=== PATIENT | female | born 1985 | race Caucasian/White ===

== ENCOUNTER 2016-10-08 19:21 | Emergency (ER) | payer OTHER ==
[~2016-10-08 19:21] MED LIST: CYCL7.5T2 PO; IBUP800T OR; NAPR500T2 PO; PERC5TAB8 OR; ULTR50TA PO
[2016-10-08] MEDS ORDERED: DERMABOND TOPICAL SKIN ADHESIVE TOP ONE (19:45)
[2016-10-08 20:57] VITALS: BP 145/94
[2016-10-08 21:04] LABS: MEAN CORPUSCULAR HEMOGLOBIN 33.4 pg (27.0-33.0); MEAN CORPUSCULAR VOLUME 101.1 fl (80.0-96.0); RED CELL DISTRIBUTION WIDTH 15.6 % (11.5-14.5); WHITE BLOOD COUNT 12.6 K/mm3 (4.0-10.0)
[2016-10-08 21:24] LABS: METHADONE URINE NEGATIVE (NEGATIVE)
[2016-10-08 21:36] LABS: ALBUMIN 4.2 GM/DL (3.2-5.2); ALKALINE PHOSPHATASE 122 U/L (45-117); ALT/SGPT 39 U/L (12-78); ANION GAP 10 MEQ/L (8-16); AST/SGOT 40 U/L (15-37); BILIRUBIN,DIRECT < 0.1 MG/DL (0.0-0.2); BILIRUBIN,TOTAL 0.2 MG/DL (0.2-1.0); BLOOD UREA NITROGEN 7 MG/DL (7-18); CALCIUM LEVEL 8.4 MG/DL (8.5-10.1); CARBON DIOXIDE LEVEL 25 MEQ/L (21-32); CHLORIDE LEVEL 109 MEQ/L (98-107); GLOMERULAR FILTRATION RATE > 60.0 (>60); GLUCOSE, FASTING 97 MG/DL (70-105); SODIUM LEVEL 144 MEQ/L (136-145); TOTAL PROTEIN 7.7 GM/DL (6.4-8.2)
== END 2016-10-08 21:26 | disposition home or self-care (01) ==
LOC: EDBD 19:21 → M ED 19:41
DX: S01.90XA Unspecified open wound of unspecified part of head, initial encounter (principal); X58.XXXA Exposure to other specified factors, initial encounter; Y92.9 Unspecified place or not applicable; Y93.9 Activity, unspecified; Y99.9 Unspecified external cause status; F10.129 Alcohol abuse with intoxication, unspecified; F17.200 Nicotine dependence, unspecified, uncomplicated; Z88.2 Allergy status to sulfonamides
CPT/HCPCS: 12011; 80048; 80076; 80306; 84443; 85027; 99283; G0480

== ENCOUNTER 2017-02-04 01:45 | Emergency (ER) | payer OTHER ==
[~2017-02-04] VITALS: Ht 154.9 cm; Wt 58.1 kg
[2017-02-04 01:53] VITALS: BP 163/111
== END 2017-02-04 02:30 | disposition left against medical advice (07) ==
LOC: M ED 01:45 → EDBD 01:45 → M ED 02:30
DX: T76.91XA Unspecified adult maltreatment, suspected, initial encounter (principal); Y92.9 Unspecified place or not applicable; Y93.9 Activity, unspecified; Z53.21 Procedure and treatment not carried out due to patient leaving prior to being seen by health care provider

== ENCOUNTER 2017-02-25 21:32 | Emergency (ER) | payer OTHER ==
[~2017-02-25] VITALS: Ht 157.5 cm; Wt 110.0 kg
[2017-02-25] MEDS ORDERED: SUCCINYLCHOLINE 100 MG/5 ML SYRINGE (J0330) ONE (21:33)
[2017-02-25] MEDS ORDERED: ETOMIDATE INJ 20MG/10ML VIAL ONE (21:33)
[2017-02-25] MEDS ORDERED: CHARCOAL ACTIVATED LIQUID 25 GM/120 ML BTL PO ONE (22:00)
[2017-02-25 22:03] LABS: BASO % 0.3 % (0.0-1.0); EOS % 0.2 % (0.0-3.0); LARGE UNSTAINED CELL # 0.2 K/mm3 (0.0-0.4); LARGE UNSTAINED CELL % 2.6 % (0.0-4.0); LYMPH # 2.3 K/mm3 (1.5-4.5); MEAN CORPUSCULAR HEMOGLOBIN 33.3 pg (27.0-33.0); MEAN CORPUSCULAR HGB CONC 32.5 g/dl (32.0-36.5); MEAN CORPUSCULAR VOLUME 102.4 fl (80.0-96.0); MONO # 0.2 K/mm3 (0.0-0.8); MONO % 2.5 % (0.0-5.0); NEUTROPHILS # 4.6 K/mm3 (1.8-7.7); NEUTROPHILS % 63.3 % (36.0-66.0); PLATELET COUNT, AUTOMATED 349 k/mm3 (150-450); RED CELL DISTRIBUTION WIDTH 16.9 % (11.5-14.5); WHITE BLOOD COUNT 7.3 K/mm3 (4.0-10.0)
[2017-02-25] MEDS ORDERED: SUCCINYLCHOLINE INJ 200 MG/10 ML VIAL (J0330) IV ONE (22:15)
[2017-02-25] MEDS ORDERED: MIDAZOLAM INJ 2 MG/2 ML VIAL (J2250) IV ONE ×2 (22:15→22:30)
[2017-02-25 22:17] LABS: ABG BASE EXCESS -7.7 (-2.0-2.0); ABG HCO3 18.9 MEQ/L (22.0-26.0); ABG PARTIAL PRESSURE CO2 42.7 mmHg (35.0-45.0); ABG PARTIAL PRESSURE O2 114.5 mmHg (75.0-100.0); ABG STANDARD HCO3 18.2 MEQ/L (22.0-26.0); ABG TOTAL CO2 20.2 MEQ/L (22.0-29.0); ABG pH (ARTERIAL) 7.264 UNITS (7.350-7.450)
[2017-02-25 22:27] LABS: OSMOLALITY SERUM 374 MOSM/KG (275-295)
[2017-02-25 22:29] LABS: CONTROL LINE HCG INT CTR LINE PRESENT
[2017-02-25 22:31] LABS: ALBUMIN/GLOBULIN RATIO 1.18 (1.00-1.93); ALKALINE PHOSPHATASE 109 U/L (45-117); ALT/SGPT 29 U/L (12-78); ANION GAP 11 MEQ/L (8-16); AST/SGOT 24 U/L (15-37); BILIRUBIN,DIRECT < 0.1 MG/DL (0.0-0.2); BILIRUBIN,TOTAL 0.2 MG/DL (0.2-1.0); BLOOD UREA NITROGEN 10 MG/DL (7-18); CALCIUM LEVEL 8.4 MG/DL (8.5-10.1); CARBON DIOXIDE LEVEL 26 MEQ/L (21-32); CHLORIDE LEVEL 108 MEQ/L (98-107); CREATININE FOR GFR 0.97 MG/DL (0.55-1.02); GLOMERULAR FILTRATION RATE > 60.0 (>60); GLUCOSE, FASTING 119 MG/DL (70-105); METHADONE URINE NEGATIVE (NEGATIVE); POTASSIUM SERUM 3.6 MEQ/L (3.5-5.1); SODIUM LEVEL 145 MEQ/L (136-145); T UPTAKE 31 % (30-39); THYROXINE (T4) 7.1 UG/DL (4.5-12.0); TOTAL PROTEIN 7.4 GM/DL (6.4-8.2)
--- NOTE | 2017-02-25 22:40 | REPUSA ---
CT of the head Clinical history: altered level of consciousness. Comparison: 02/18/2016. Technique: Multiple axial CT images were obtained through the head without administration of contrast . Findings: The ventricles and sulci are symmetric bilaterally. There is no evidence of acute hemorrhag e or infarct. There is no midline shift, mass effect, or extra-axial fluid collection. The osseous st ructures are unremarkable. The visualized paranasal sinuses and mastoid air cells are clear. Impression: Negative study.
[2017-02-25 23:23] LABS: ABG BASE EXCESS -4.7 (-2.0-2.0); ABG HCO3 21.3 MEQ/L (22.0-26.0); ABG PARTIAL PRESSURE CO2 42.6 mmHg (35.0-45.0); ABG STANDARD HCO3 20.6 MEQ/L (22.0-26.0); ABG TOTAL CO2 22.6 MEQ/L (22.0-29.0); ABG pH (ARTERIAL) 7.316 UNITS (7.350-7.450)
[2017-02-26] MEDS ORDERED: CARI350T PO (02:49)
[2017-02-26] MEDS ORDERED: QUET1TAB8 PO (02:49)
[2017-02-26] MEDS ORDERED: SENN1TAB10 PO (02:49)
[2017-02-26] MEDS ORDERED: LEVOTAB10 PO (02:49)
[2017-02-26] MEDS ORDERED: ALPR2TAB3 PO (02:49)
[2017-02-26] MEDS ORDERED: GABA600T PO (02:49)
[2017-02-26] MEDS ORDERED: BUSP15TA47 PO (02:49)
[2017-02-26] MEDS ORDERED: HYDR-3719 PO (02:49)
[2017-02-26] MEDS ORDERED: ATEN100T PO (02:49)
[2017-02-26] MEDS ORDERED: VENL150C43 PO (02:49)
[2017-02-26] MEDS ORDERED: PATIENT COMMENT (02:51)
[2017-02-26 05:30] VITALS: BP 146/89
--- NOTE | 2017-02-26 06:00 | ECGEPIP ---
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 RBBB SIMILAR TO 08/29/15 Electronically Signed On 02-26-2017 5:59:51 EDT by Mike Mcfarland
--- NOTE | 2017-02-26 07:39 | REP ---
Portable chest, 90, 57 p.m., single AP view, the patient semi upright, for ET tube placement: Comparison is 11/12/2012. There is an endotracheal tube with the tip terminating satisfactorily in the distal trachea just above the janice, not selectively in the right or left main stem bronchi. The lung howard are clear. Cardiac size is normal. The tina, mediastinum, and bony thorax are unremarkable. There is gaseous distension of the stomach beneath the left hemidiaphragm. Signed by Trav Veliz MD 02/26/2017 07:30 A
== END 2017-02-26 06:22 | disposition left against medical advice (07) ==
LOC: M ED 21:32 → EDBD 21:32 → M ED 02-26 06:22
DX: R40.20 Unspecified coma (principal); F10.120 Alcohol abuse with intoxication, uncomplicated; T42.4X4A Poisoning by benzodiazepines, undetermined, initial encounter; Y92.89 Other specified places as the place of occurrence of the external cause
CPT/HCPCS: 31500; 36415; 36600; 51702; 70450; 71010; 80048; 80076; 80307; 80320; 80329; 82140; 82375; 82550; 82553; 82803; 83930; 84436; 84443; 84479; 84703; 85025; 93000; 93041; 96374; 96375; 99291; J0330; J2250

== ENCOUNTER 2018-02-18 21:09 | Emergency (ER) | payer OTHER ==
[2018-02-18] MEDS: CARISOPRODOL 350 MG TAB PO (22:27)
[2018-02-18] MEDS: NORCO 5/325MG TABLET (BULK FOR ED) PO (22:28)
== END 2018-02-18 22:32 | disposition home or self-care (01) ==
LOC: M ED 21:09
DX: Z76.0 Encounter for issue of repeat prescription (principal); M54.9 Dorsalgia, unspecified; G89.29 Other chronic pain; I10 Essential (primary) hypertension; F41.9 Anxiety disorder, unspecified; R56.9 Unspecified convulsions; F42.9 Obsessive-compulsive disorder, unspecified; F17.210 Nicotine dependence, cigarettes, uncomplicated; Z88.2 Allergy status to sulfonamides; Z79.899 Other long term (current) drug therapy
CPT/HCPCS: 99283

== ENCOUNTER 2018-06-07 09:25 | Emergency (ER) | payer OTHER ==
[~2018-06-07] VITALS: Ht 154.9 cm; Wt 50.0 kg
[~2018-06-07 09:25] MED LIST changes: +ALPR2TAB3 PO; +ATEN100T PO; +BUSP15TA47 PO; +CARI1TAB7 PO; +GABA600T4 PO; +HYDR-3719 PO; +LEVOTAB10 PO; +NORCOTAB PO; +PATIENT COMMENT; +QUET1TAB8 PO; +SENN1TAB10 PO; +SOMA350T PO; +VENL150C43 PO
[2018-06-07] MEDS ORDERED: ONDANSETRON 4MG/2ML VIAL (J2405) IV ONE (09:45)
[2018-06-07] MEDS ORDERED: NS 1,000 ML IV ONE (09:45)
[2018-06-07] MEDS ORDERED: KETOROLAC 30 MG/ML VIAL (J1885) IV ONE (09:45)
[2018-06-07 10:05] LABS: BASO % 0.3 % (0.0-1.0); EOS % 0.4 % (0.0-3.0); HEMATOCRIT 42.6 % (36.0-47.0); HEMOGLOBIN 14.2 g/dl (12.0-15.5); LYMPH # 2.4 10^3/uL (1.5-4.5); LYMPH % 22.2 % (24.0-44.0); MEAN CORPUSCULAR HEMOGLOBIN 29.8 pg (27.0-33.0); MEAN CORPUSCULAR HGB CONC 33.3 g/dl (32.0-36.5); MEAN CORPUSCULAR VOLUME 89.5 fl (80.0-96.0); MONO # 0.2 10^3/uL (0.0-0.8); MONO % 1.6 % (0.0-5.0); NEUTROPHILS # 8.1 10^3/uL (1.8-7.7); NEUTROPHILS % 75.3 % (36.0-66.0); PLATELET COUNT, AUTOMATED 299 10^3/uL (150-450); RED BLOOD COUNT 4.76 10^6/uL (4.00-5.40); WHITE BLOOD COUNT 10.7 10^3/uL (4.0-10.0)
[2018-06-07 10:33] LABS: ALBUMIN 3.8 GM/DL (3.2-5.2); ALT/SGPT 16 U/L (12-78); AMYLASE 81 U/L (25-115); BILIRUBIN,TOTAL 0.4 MG/DL (0.2-1.0); BLOOD UREA NITROGEN 6 MG/DL (7-18); CALCIUM LEVEL 9.1 MG/DL (8.5-10.1); CARBON DIOXIDE LEVEL 28 MEQ/L (21-32); CHLORIDE LEVEL 104 MEQ/L (98-107); CREATININE FOR GFR 0.72 MG/DL (0.55-1.30); GLOMERULAR FILTRATION RATE > 60.0 (>60); GLUCOSE, FASTING 108 MG/DL (70-100); LIPASE 93 U/L (73-393); POTASSIUM SERUM 3.8 MEQ/L (3.5-5.1); SODIUM LEVEL 140 MEQ/L (136-145); TOTAL PROTEIN 7.9 GM/DL (6.4-8.2)
--- NOTE | 2018-06-07 10:45 | REP ---
Clinical: Right upper quadrant pain. Technique: Real time parker scale ultrasound examination using curved array transducer. Findings: The liver and visualized pancreas are normal in contour, size, and echogenicity without focal hepatic or pancreatic lesions identified. The gallbladder is normal and without gallstones, wall thickening, or pericholecystic fluid. No biliary ductal dilatation is appreciated and the common bile duct measures 3.8 mm diameter. The right kidney is normal in reniform shape without hydronephrosis and measures 11.3 x 3.6 x 4.8 cm. No ascites. Impression: Normal right upper quadrant ultrasound. Electronically Signed by Alan Angela MD 06/07/2018 10:37 A
[2018-06-07] MEDS ORDERED: METOCLOPRAMIDE INJ 10MG/2ML VIAL (J2765) IV ONE (11:00)
[2018-06-07] MEDS ORDERED: REGL10TA6 PO (11:22)
[2018-06-07] MEDS ORDERED: DICY20TA PO (11:22)
[2018-06-07] MEDS ORDERED: PROT1TAB2 PO (11:22)
[2018-06-07] MEDS ORDERED: KETO10TAB PO (11:22)
[2018-06-07] MEDS ORDERED: ONDANSETRON 4 MG TAB (S0181) PO ONE (11:30)
[2018-06-07] MEDS ORDERED: DICYCLOMINE 10 MG CAP PO ONE (11:30)
[2018-06-07] MEDS ORDERED: PANTOPRAZOLE 40MG TAB (PROTONIX) PO ONE (11:30)
[2018-06-07 11:46] VITALS: BP 167/87
== END 2018-06-07 11:50 | disposition home or self-care (01) ==
LOC: M ED 09:25
DX: R10.10 Upper abdominal pain, unspecified (principal); R11.2 Nausea with vomiting, unspecified; R19.7 Diarrhea, unspecified; I10 Essential (primary) hypertension; Z72.0 Tobacco use; R56.9 Unspecified convulsions; M54.9 Dorsalgia, unspecified; F41.9 Anxiety disorder, unspecified; F32.9 Major depressive disorder, single episode, unspecified; F42.9 Obsessive-compulsive disorder, unspecified; Z79.899 Other long term (current) drug therapy; Z88.2 Allergy status to sulfonamides
CPT/HCPCS: 36415; 76705; 80053; 81001; 82150; 83690; 85025; 96374; 96375; 99284; J1885; J2405; J2765

== ENCOUNTER 2018-06-19 11:52 | Emergency (ER) | payer OTHER ==
[~2018-06-19] VITALS: Ht 154.9 cm; Wt 54.1 kg
[~2018-06-19 11:52] MED LIST changes: +DICY20TA PO; +KETO10TAB PO; +PROT1TAB2 PO; +REGL10TA6 PO
[2018-06-19] MEDS ORDERED: NS 1,000 ML IV ONE (12:30)
[2018-06-19 12:41] LABS: BASO % 0.3 % (0.0-1.0); EOS # 0.1 10^3/uL (0.0-0.50); EOS % 0.5 % (0.0-3.0); HEMATOCRIT 48.6 % (36.0-47.0); HEMOGLOBIN 16.3 g/dl (12.0-15.5); LYMPH # 3.8 10^3/uL (1.5-4.5); LYMPH % 29.4 % (24.0-44.0); MEAN CORPUSCULAR HEMOGLOBIN 30.1 pg (27.0-33.0); MEAN CORPUSCULAR HGB CONC 33.5 g/dl (32.0-36.5); MEAN CORPUSCULAR VOLUME 89.7 fl (80.0-96.0); MONO # 0.4 10^3/uL (0.0-0.8); MONO % 3.3 % (0.0-5.0); NEUTROPHILS # 8.5 10^3/uL (1.8-7.7); NEUTROPHILS % 66.2 % (36.0-66.0); RED BLOOD COUNT 5.42 10^6/uL (4.00-5.40); WHITE BLOOD COUNT 12.9 10^3/uL (4.0-10.0)
[2018-06-19 12:51] LABS: PLATELET COUNT, AUTOMATED 330 10^3/uL (150-450)
[2018-06-19] MEDS ORDERED: MORPHINE 4 MG/ML 1ML VIAL/SYRINGE (J2270) IV ONE (13:15)
[2018-06-19] MEDS ORDERED: ONDANSETRON 4MG/2ML VIAL (J2405) IV ONE (13:15)
[2018-06-19 13:41] LABS: ALBUMIN 4.7 GM/DL (3.2-5.2); ALT/SGPT 21 U/L (12-78); AMYLASE 140 U/L (25-115); BILIRUBIN,DIRECT 0.2 MG/DL (0.0-0.2); BILIRUBIN,TOTAL 0.6 MG/DL (0.2-1.0); BLOOD UREA NITROGEN 16 MG/DL (7-18); CALCIUM LEVEL 10.1 MG/DL (8.5-10.1); CARBON DIOXIDE LEVEL 27 MEQ/L (21-32); CHLORIDE LEVEL 99 MEQ/L (98-107); CREATININE FOR GFR 0.93 MG/DL (0.55-1.30); GLOMERULAR FILTRATION RATE > 60.0 (>60); GLUCOSE, FASTING 88 MG/DL (70-100); LIPASE 494 U/L (73-393); POTASSIUM SERUM 3.6 MEQ/L (3.5-5.1); SODIUM LEVEL 136 MEQ/L (136-145); TOTAL PROTEIN 8.6 GM/DL (6.4-8.2)
[2018-06-19] MEDS ORDERED: ISOVUE-370 76% 100ML VIAL (Q9967) As Ordered ONE (13:45)
--- NOTE | 2018-06-19 14:36 | REP ---
CT ABDOMEN AND PELVIS WITH IV BUT WITHOUT ORAL CONTRAST: HISTORY: Epigastric pain slightly elevated amylase and lipase. CT CONTRAST DOSE: 100 mL of intravenous Isovue 370. 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 The lung bases are clear on axial CT images. The liver and the spleen are normal in size and homogeneous in texture. No adrenal lesion is seen. No focal hepatic lesion is observed. The pancreas is unremarkable. No abnormality is noted in the gallbladder. No retroperitoneal mass or adenopathy is seen. The kidneys enhance symmetrically and are morphologically intact. There is fairly impressive aortobi-iliac calcific plaquing in this young patient. Pelvic CT images demonstrate tubal ligation bands. Uterus is tipped somewhat to the left but unremarkable. Urinary bladder is normal. No adnexal mass or cyst is seen on either side. Small and large intestinal bowel loops are unremarkable. No abdominal wall defect. Bone window settings show no bony destructive lesion. Normal appendix is seen in the right mid pelvis. IMPRESSION: Fairly extensive aortobi-iliac vascular calcification in this young patient. Status post bilateral tubal ligation. Otherwise negative. Electronically Signed by Julius Abdi MD 06/19/2018 04:26 P
[2018-06-19] MEDS ORDERED: ONDA4TAB6 PO (14:38)
[2018-06-19] MEDS ORDERED: ACET30TAB PO (14:39)
[2018-06-19] MEDS ORDERED: CIPR-249 PO (14:41)
[2018-06-19 14:46] VITALS: BP 155/98
--- NOTE | 2018-06-23 12:52 | ED PDOC ---
Post-Departure Follow-Up dr thakur faxed formal report of ct abd/p fo rfu Joao Castanon MD Jun 23, 2018 12:52
== END 2018-06-19 14:51 | disposition home or self-care (01) ==
LOC: M ED 11:52
DX: N30.00 Acute cystitis without hematuria (principal); K85.90 Acute pancreatitis without necrosis or infection, unspecified; R93.1 Abnormal findings on diagnostic imaging of heart and coronary circulation; I99.9 Unspecified disorder of circulatory system; R56.9 Unspecified convulsions; G89.29 Other chronic pain; M54.9 Dorsalgia, unspecified; F41.9 Anxiety disorder, unspecified; F32.9 Major depressive disorder, single episode, unspecified; N18.9 Chronic kidney disease, unspecified; Z72.0 Tobacco use; Z79.899 Other long term (current) drug therapy; Z88.2 Allergy status to sulfonamides
CPT/HCPCS: 36415; 74177; 80048; 80076; 81001; 82150; 83690; 85025; 87186; 96361; 96374; 96375; 99284; J2270; J2405; Q9967

== ENCOUNTER 2018-09-06 09:08 | Emergency (ER) | payer OTHER ==
[~2018-09-06] VITALS: Ht 154.9 cm; Wt 52.7 kg
[~2018-09-06 09:08] MED LIST changes: +ACET-716 PO; +CIPR-249 PO; +HYDR-3715 PO; -NORCOTAB PO; +ONDA4TAB6 PO
[2018-09-06] MEDS ORDERED: GABA600T4 PO (09:13)
[2018-09-06] MEDS ORDERED: MIRT45TA4 PO (09:13)
[2018-09-06] MEDS ORDERED: ALPR1TAB3 PO (09:13)
[2018-09-06] MEDS ORDERED: ALPRAZolam 0.5 MG TAB PO ONE ×3 (09:30→12:30)
[2018-09-06] MEDS ORDERED: NS 1,000 ML IV ONE (09:30)
[2018-09-06 09:59] LABS: AMPHETAMINES LEVEL URINE NEGATIVE (NEGATIVE); BARBITURATES URINE NEGATIVE (NEGATIVE); BENZODIAZEPINES URINE POSITIVE (NEGATIVE); CANNABINOIDS URINE POSITIVE (NEGATIVE); COCAINE METABOLITE URINE POSITIVE (NEGATIVE); METHADONE URINE NEGATIVE (NEGATIVE); OPIATES URINE NEGATIVE (NEGATIVE); PHENCYCLIDINE URINE NEGATIVE (NEGATIVE)
[2018-09-06 10:01] LABS: BASO % 0.3 % (0.0-1.0); EOS % 0.1 % (0.0-3.0); HEMATOCRIT 46.2 % (36.0-47.0); HEMOGLOBIN 15.2 g/dl (12.0-15.5); LYMPH # 3.2 10^3/uL (1.5-4.5); LYMPH % 22.3 % (24.0-44.0); MEAN CORPUSCULAR HEMOGLOBIN 30.8 pg (27.0-33.0); MEAN CORPUSCULAR HGB CONC 32.9 g/dl (32.0-36.5); MEAN CORPUSCULAR VOLUME 93.5 fl (80.0-96.0); MONO # 0.3 10^3/uL (0.0-0.8); MONO % 1.8 % (0.0-5.0); NEUTROPHILS # 10.6 10^3/uL (1.8-7.7); NEUTROPHILS % 75.1 % (36.0-66.0); PLATELET COUNT, AUTOMATED 349 10^3/uL (150-450); RED BLOOD COUNT 4.94 10^6/uL (4.00-5.40); WHITE BLOOD COUNT 14.1 10^3/uL (4.0-10.0)
[2018-09-06] MEDS ORDERED: PROMETHAZINE INJ 25 MG/ML VIAL (J2550) IV ONE (10:30)
[2018-09-06 12:05] LABS: ALBUMIN 4.2 GM/DL (3.2-5.2); ALT/SGPT 13 U/L (12-78); BILIRUBIN,DIRECT < 0.1 MG/DL (0.0-0.2); BILIRUBIN,TOTAL 0.4 MG/DL (0.2-1.0); BLOOD UREA NITROGEN 10 MG/DL (7-18); CALCIUM LEVEL 9.7 MG/DL (8.5-10.1); CARBON DIOXIDE LEVEL 28 MEQ/L (21-32); CHLORIDE LEVEL 107 MEQ/L (98-107); CREATININE FOR GFR 0.85 MG/DL (0.55-1.30); GLOMERULAR FILTRATION RATE > 60.0 (>60); GLUCOSE, FASTING 103 MG/DL (70-100); POTASSIUM SERUM 4.2 MEQ/L (3.5-5.1); SODIUM LEVEL 142 MEQ/L (136-145); TOTAL PROTEIN 7.8 GM/DL (6.4-8.2)
[2018-09-06] MEDS ORDERED: CLONI1TA PO (12:53)
[2018-09-06] MEDS ORDERED: cloNIDine 0.1 MG TAB PO ONE (13:00)
[2018-09-06] MEDS ORDERED: KETOROLAC 30 MG/ML VIAL (J1885) IV ONE (13:00)
[2018-09-06] MEDS ORDERED: hydrALAZINE INJ 20 MG/ML VIAL IV STA (13:42)
[2018-09-06 16:07] VITALS: BP 193/98
== END 2018-09-06 16:15 | disposition home or self-care (01) ==
LOC: M ED 09:08
DX: F19.230 Other psychoactive substance dependence with withdrawal, uncomplicated (principal); F19.10 Other psychoactive substance abuse, uncomplicated; I10 Essential (primary) hypertension; R56.9 Unspecified convulsions; G89.29 Other chronic pain; M54.9 Dorsalgia, unspecified; F41.9 Anxiety disorder, unspecified; F32.9 Major depressive disorder, single episode, unspecified; F42.9 Obsessive-compulsive disorder, unspecified; Z72.0 Tobacco use; Z79.899 Other long term (current) drug therapy; Z88.2 Allergy status to sulfonamides
CPT/HCPCS: 36415; 80048; 80076; 80307; 85025; 96374; 96375; 99284; J1885

== ENCOUNTER 2018-09-17 08:27 | Emergency (ER) | payer OTHER ==
[~2018-09-17] VITALS: Ht 154.9 cm; Wt 53.6 kg
[~2018-09-17 08:27] MED LIST changes: +ALPR1TAB3 PO; +CLONI1TA PO; +MIRT45TA4 PO
[2018-09-17] MEDS ORDERED: FOLI1TAB11 PO (08:38)
[2018-09-17] MEDS ORDERED: ONDANSETRON 4MG/2ML VIAL (J2405) IV ONE ×2 (09:15→10:45)
[2018-09-17] MEDS ORDERED: NS 1,000 ML IV ONE (09:15)
[2018-09-17 09:33] LABS: BASO % 0.3 % (0.0-1.0); EOS % 0.2 % (0.0-3.0); HEMATOCRIT 44.3 % (36.0-47.0); HEMOGLOBIN 14.8 g/dl (12.0-15.5); LYMPH # 4.2 10^3/uL (1.5-4.5); LYMPH % 36.5 % (24.0-44.0); MEAN CORPUSCULAR HEMOGLOBIN 31.1 pg (27.0-33.0); MEAN CORPUSCULAR HGB CONC 33.4 g/dl (32.0-36.5); MEAN CORPUSCULAR VOLUME 93.1 fl (80.0-96.0); MONO # 0.5 10^3/uL (0.0-0.8); NEUTROPHILS # 6.8 10^3/uL (1.8-7.7); NEUTROPHILS % 58.7 % (36.0-66.0); PLATELET COUNT, AUTOMATED 346 10^3/uL (150-450); RED BLOOD COUNT 4.76 10^6/uL (4.00-5.40); WHITE BLOOD COUNT 11.5 10^3/uL (4.0-10.0)
[2018-09-17 09:57] LABS: ALBUMIN 4.2 GM/DL (3.2-5.2); ALT/SGPT 20 U/L (12-78); AMYLASE 64 U/L (25-115); BILIRUBIN,DIRECT 0.1 MG/DL (0.0-0.2); BILIRUBIN,TOTAL 0.4 MG/DL (0.2-1.0); BLOOD UREA NITROGEN 18 MG/DL (7-18); CALCIUM LEVEL 9.6 MG/DL (8.5-10.1); CARBON DIOXIDE LEVEL 23 MEQ/L (21-32); CHLORIDE LEVEL 105 MEQ/L (98-107); CREATININE FOR GFR 0.69 MG/DL (0.55-1.30); GLOMERULAR FILTRATION RATE > 60.0 (>60); GLUCOSE, FASTING 87 MG/DL (70-100); LIPASE 93 U/L (73-393); SODIUM LEVEL 139 MEQ/L (136-145); TOTAL PROTEIN 7.6 GM/DL (6.4-8.2)
--- NOTE | 2018-09-17 10:22 | CR.PDOC ---
General Date of Consultation: Sep 17, 2018 Consultation Vascular Surgery: Dr. Sanders PCP: ANDREINA Noland CC: abdominal pain HPI: 32yoF who referred to ED as per PCP office related to abdominal pain. Pt states she has had abdominal pain for some time, but over the past 2-3 weeks has been much worse. Reports constant abdominal aching across upper abdomen which worsens about 10-15 min after eating or drinking fluids. For the past 2-3 weeks she has been vomiting after eating or drinking. She states she has occasional diarrhea. Denies urinary c/o. Vascular surgery is consulted related to pt previous imaging indicating extensive aortobi-iliac vascular calcification. Denies any fevers, chills, weakness, fatigue, JUÁREZ, CP, SOB, cough, palpitations, changes in bladder habits. PMHx: anxiety depression substance use tobacco use PSHX: BTL C section SOCHX: Resides in: [facility] Marital Status: Kids: 3 Tobacco use: 1 ppd ETOH: denies Illicit Drugs: marijuana, h/o crack cocaine FAMHX: Mother: Alive, HTN Father: Alive, HTN Siblings: none Children: 3 Alive, well ROS: As noted in HPI, otherwise 11pt ROS of systems reviewed and remarkable only for LMP 08/26. PE: GEN: 32yoF, appears stated age. Alert and oriented x 3. HEENT: Normocephalic, atraumatic. Pupils are equal, round, and reactive to light. Sclera are nonicteric. Conjunctiva without injection. No facial asymmetry. Moist mucous membranes. CHEST: Regular rate and rhythm, +S1, +S2 LUNGS: Clear to auscultation bilaterally. No wheezes, rales, or rhonchi. ABD: Flat, soft, TTP across upper abdomen and epigastric area, non-distended. Bowel sounds hypoactive. No rebound or guarding. No costovertebral angle tenderness. EXT: Pulses 2+ bilaterally dorsalis pedis and radial. No lower extremity edema appreciated. SKIN: [place], dry, warm. Capillary refill <2sec. No rashes. DP/PT pulses 2+ NEURO: Alert and oriented x 3. No focal deficits appreciated. CT: 06/28 Fairly extensive aortobi-iliac vascular calcification in this young patient. Status post bilateral tubal ligation. Otherwise negative. Electronically Signed by Julius Abdi MD 06/19/2018 04:26 P BC x 2 pending UC pending. Item Value Date Time Amylase Level 64 U/L 09/17/18915 Lipase 93 U/L 09/17/18915 A&P: 32yoF who referred to ED as per PCP office related to abdominal pain. Pt states she has had abdominal pain for some time, but over the past 2-3 weeks has been much worse. Reports constant abdominal aching across upper abdomen which worsens about 10-15 min after eating or drinking fluids. For the past 2-3 weeks she has been vomiting after eating or drinking. She states she has occasional diarrhea. Denies urinary c/o. Vascular surgery is consulted related to pt previous imaging indicating extensive aortobi-iliac vascular calcification. 1. Abdominal pain. Pt is afebrie. WBC 11.5. BC, UC pending. Amylase/Lipase WNL. LA 1.4. Pt describes post prandial discomfort. Recommend obtaining mesenteric U/S. Pending at this time. Further recommendations pending results. 2. Aorto-bi iliac calcification. Recommend obtaining mesenteric U/S. Pending at this time. Further recommendations pending results. 3. Tobacco use. 4. H/O substance use. Vital Signs/I&O Vital Signs Date Time Temp Pulse Resp B/P (MAP) Pulse Ox O2 Delivery O2 Flow Rate FiO2 09/17/18 09:44 09/17/18 08:27 97.8 60 16 100 Room Air Laboratory Data Labs 24H Laboratory Tests 2 09/17/18 09:16: Immature Granulocyte % (Auto) 0.3, White Blood Count 11.5H, Red Blood Count 4.76, Hemoglobin 14.8, Hematocrit 44.3, Mean Corpuscular Volume 93.1, Mean Corpuscular Hemoglobin 31.1, Mean Corpuscular Hemoglobin Concent 33.4, Red Cell Distribution Width 14.9H, Platelet Count 346, Neutrophils (%) (Auto) 58.7, Lymphocytes (%) (Auto) 36.5, Monocytes (%) (Auto) 4.0, Eosinophils (%) (Auto) 0.2, Basophils (%) (Auto) 0.3, Neutrophils # (Auto) 6.8, Lymphocytes # (Auto) 4.2, Monocytes # (Auto) 0.5, Eosinophils # (Auto) 0.0, Basophils # (Auto) 0.0, Nucleated Red Blood Cells % (auto) 0.0, Anion Gap 11, Glomerular Filtration Rate > 60.0, Calcium Level 9.6, Aspartate Amino Transf (AST/SGOT) 14, Alanine Aminotransferase (ALT/SGPT) 20, Alkaline Phosphatase 86, Total Bilirubin 0.4, Direct Bilirubin 0.1, Total Protein 7.6, Albumin 4.2, Albumin/Globulin Ratio 1.24, Amylase Level 64, Lipase 93 09/17/18 09:23: Urine Color YELLOW, Urine Appearance CLOUDYH, Urine pH 6.0, Urine Specific [place] 1.017, Urine Protein 1+H, Urine Glucose (UA) NEGATIVE, Urine Ketones NEGATIVE, Urine Blood NEGATIVE, Urine Nitrite POSITIVEH, Urine Bilirubin NEGA TIVE, Urine Urobilinogen 2.0H, Urine Leukocyte Esterase 1+H, Urine WBC (Auto) 5H, Urine RBC (Auto) 1, Urine Hyaline Casts (Auto) 0, Urine Bacteria (Auto) 3+H, Urine Squamous Epithelial Cells 8, Urine Amorphous Sediment MODERATEH, Urine Mucus (Auto) MODERATE, Urine Sperm (Auto) 09/17/18 09:38: CBC/BMP Laboratory Tests 09/17/18 09:16 Red Blood Count 4.76, Mean Corpuscular Volume 93.1, Mean Corpuscular Hemoglobin 31.1, Mean Corpuscular Hemoglobin Concent 33.4, Red Cell Distribution Width 14.9 H, Neutrophils (%) (Auto) 58.7, Lymphocytes (%) (Auto) 36.5, Monocytes (%) (Auto) 4.0, Eosinophils (%) (Auto) 0.2, Basophils (%) (Auto) 0.3, Neutrophils # (Auto) 6.8, Lymphocytes # (Auto) 4.2, Monocytes # (Auto) 0.5, Eosinophils # (Auto) 0.0, Basophils # (Auto) 0.0 Microbiology Microbiology 09/17/18 Blood Culture, Received Pending 09/17/18 Blood Culture, Received Pending 09/17/18 Urine Culture, Received Pending Allergies Coded Allergies: Sulfa (Sulfonamide Antibiotics) (Verified Allergy, Unknown, 09/06/18) Home Medications Scheduled Alprazolam (Alprazolam) 1 Mg Tab, 2 MG PO DAILY, (Reported) Atenolol (Atenolol) 100 Mg Tab, 100 MG PO DAILY, (Reported) Folic Acid (Folic Acid) 1 Mg Tablet, 1 MG PO DAILY, (Reported) Gabapentin (Gabapentin) 600 Mg Tab, PO TID, (Reported) Mirtazapine (Mirtazapine) 45 Mg Tab, PO QHS, (Reported) Scheduled PRN Ondansetron (Ondansetron Odt) 4 Mg Tab, 4 MG PO Q6-8HP PRN for nausea/vomiting, #10 Amanda Guy Sep 17, 2018 10:22
[2018-09-17] MEDS ORDERED: MORPHINE 4 MG/ML 1ML VIAL/SYRINGE (J2270) IV PRN (10:45)
--- NOTE | 2018-09-17 13:53 | REP ---
Mesenteric Arterial Doppler ultrasound: History: Question mesenteric ischemia. Technique: Pre and post prandial Doppler imaging is acquired of the celiac, this proximal SMA, and mid SMA arterial Doppler flow. Findings: Normal superior mesenteric peak systolic and end diastolic velocities are observed with expected increased postprandial velocities and decrease after 30 minutes. No evidence of stenosis or occlusion is seen. The celiac axis at peak systolic flow velocity is measured at baseline and is normal at 133 cm/sec, EDV 26 cm/sec. Doppler velocity chart: Baseline: proximal SMA PSV 129 RAULITO 20, mid SMA PSV 120 40 dB 17 cm/S 10 minutes: Proximal SMA PSV 164 EDV 35, mid SMA PSV 158 EDV 38 cm/S 20 minutes: Proximal SMA PSV 141 EDV 821, mid SMA PSV 149 EDV 27 30 minutes: Proximal SMA PSV 114 EDV 18, mid SMA PSV 91 EDV 19 cm/S Electronically Signed by Julius Abdi MD 09/17/2018 01:45 P
[2018-09-17] MEDS ORDERED: CARA1TAB6 PO (14:37)
[2018-09-17] MEDS ORDERED: ZANT300T9 PO (14:37)
[2018-09-17] MEDS ORDERED: ZOFR4TAB16 PO (14:38)
[2018-09-17 14:50] VITALS: BP 169/98
== END 2018-09-17 14:52 | disposition home or self-care (01) ==
LOC: M ED 08:27
DX: R10.9 Unspecified abdominal pain (principal); K21.9 Gastro-esophageal reflux disease without esophagitis; I70.8 Atherosclerosis of other arteries; I10 Essential (primary) hypertension; F41.9 Anxiety disorder, unspecified; F33.9 Major depressive disorder, recurrent, unspecified; F60.5 Obsessive-compulsive personality disorder; F17.210 Nicotine dependence, cigarettes, uncomplicated; Z79.899 Other long term (current) drug therapy; Z88.1 Allergy status to other antibiotic agents; Z88.2 Allergy status to sulfonamides; Z82.49 Family history of ischemic heart disease and other diseases of the circulatory system; Z98.51 Tubal ligation status
CPT/HCPCS: 36415; 76705; 80048; 80076; 81001; 82150; 83605; 83690; 85025; 87040; 87186; 93041; 93975; 96374; 96375; 96376; 99284; J2270; J2405

== ENCOUNTER 2019-02-25 20:48 | Emergency (ER) | payer OTHER ==
[~2019-02-25] VITALS: Ht 157.5 cm; Wt 56.0 kg
[~2019-02-25 20:48] MED LIST changes: +CARA1TAB6 PO; +FOLI1TAB11 PO; +ZANT300T9 PO; +ZOFR4TAB16 PO
[2019-02-25] MEDS ORDERED: AMIT50TA (21:20)
[2019-02-25] MEDS ORDERED: CLON-412 (21:20)
[2019-02-25] MEDS ORDERED: PROP10TA56 (21:20)
[2019-02-25 21:29] LABS: HEMATOCRIT 45.9 % (36.0-47.0); HEMOGLOBIN 15.5 g/dl (12.0-15.5); MEAN CORPUSCULAR HEMOGLOBIN 31.4 pg (27.0-33.0); MEAN CORPUSCULAR HGB CONC 33.8 g/dl (32.0-36.5); MEAN CORPUSCULAR VOLUME 93.1 fl (80.0-96.0); PLATELET COUNT, AUTOMATED 303 10^3/uL (150-450); RED BLOOD COUNT 4.93 10^6/uL (4.00-5.40); WHITE BLOOD COUNT 10.6 10^3/uL (4.0-10.0)
[2019-02-25 21:46] LABS: AMPHETAMINES LEVEL URINE NEGATIVE (NEGATIVE); BARBITURATES URINE NEGATIVE (NEGATIVE); BENZODIAZEPINES URINE POSITIVE (NEGATIVE); CANNABINOIDS URINE POSITIVE (NEGATIVE); COCAINE METABOLITE URINE NEGATIVE (NEGATIVE); METHADONE URINE NEGATIVE (NEGATIVE); OPIATES URINE NEGATIVE (NEGATIVE); PHENCYCLIDINE URINE NEGATIVE (NEGATIVE)
[2019-02-25 21:50] LABS: HCG, SERUM QUALITATIVE NEGATIVE (NEGATIVE)
[2019-02-25 22:03] LABS: ACETAMINOPHEN LEVEL < 2.0 UG/ML (10.0-30.0); ALT/SGPT 185 U/L (12-78); BILIRUBIN,DIRECT 0.1 MG/DL (0.0-0.2); BILIRUBIN,TOTAL 0.2 MG/DL (0.2-1.0); BLOOD UREA NITROGEN 13 MG/DL (7-18); CALCIUM LEVEL 10.7 MG/DL (8.5-10.1); CARBON DIOXIDE LEVEL 30 MEQ/L (21-32); CHLORIDE LEVEL 101 MEQ/L (98-107); CREATININE FOR GFR 0.85 MG/DL (0.55-1.30); ETHYL ALCOHOL (ETHANOL) 0.225 % (0.000-0.010); GLOMERULAR FILTRATION RATE > 60.0 (>60); GLUCOSE, FASTING 89 MG/DL (70-100); POTASSIUM SERUM 4.6 MEQ/L (3.5-5.1); SALICYLATE LEVEL 3.4 MG/DL (5.0-30.0); SODIUM LEVEL 138 MEQ/L (136-145); TOTAL PROTEIN 7.6 GM/DL (6.4-8.2)
[2019-02-26 09:30] VITALS: BP 141/89
== END 2019-02-26 09:38 | disposition home or self-care (01) ==
LOC: M ED 20:48
DX: F10.129 Alcohol abuse with intoxication, unspecified (principal); I10 Essential (primary) hypertension; F33.9 Major depressive disorder, recurrent, unspecified; F41.9 Anxiety disorder, unspecified; Z79.899 Other long term (current) drug therapy; Z88.1 Allergy status to other antibiotic agents; Z88.2 Allergy status to sulfonamides; F17.210 Nicotine dependence, cigarettes, uncomplicated
CPT/HCPCS: 36415; 80048; 80076; 80307; 84443; 84703; 85027; 99284; G0480

== ENCOUNTER 2019-08-16 09:32 | Emergency (ER) | payer OTHER ==
[~2019-08-16] VITALS: Ht 154.9 cm; Wt 62.5 kg
[~2019-08-16 09:32] MED LIST changes: +AMIT50TA; +CLON-412; +LIDOCAINE 5% OINT 30 GM TOP SCH; +PROP10TA56; +QUET100T2 PO; -QUET1TAB8 PO
[2019-08-16 09:33] VITALS: BP 169/81
[2019-08-16] MEDS ORDERED: QUET100T2 (09:38)
[2019-08-16] MEDS ORDERED: RISP1TAB3 (09:38)
[2019-08-16] MEDS ORDERED: LIDO4CRE4 TOP (09:59)
[2019-08-16] MEDS ORDERED: VALA1TAB5 PO (09:59)
[2019-08-16] MEDS ORDERED: LIDOCAINE 5% OINT 30 GM TOP ONE (10:00)
== END 2019-08-16 10:27 | disposition home or self-care (01) ==
LOC: M ED 09:32
DX: B02.9 Zoster without complications (principal); F17.210 Nicotine dependence, cigarettes, uncomplicated; Z88.2 Allergy status to sulfonamides; Z79.899 Other long term (current) drug therapy

== ENCOUNTER 2019-12-17 19:49 | Emergency (ER) | payer OTHER ==
[~2019-12-17] VITALS: Ht 160 cm; Wt 86.3 kg
[~2019-12-17 19:49] MED LIST changes: +LIDO4CRE4 TOP; -LIDOCAINE 5% OINT 30 GM TOP SCH; +QUET100T2; +RISP1TAB3; +VALA1TAB5 PO
[2019-12-17 19:51] VITALS: BP 180/83
[2019-12-17] MEDS ORDERED: ONDA-83 (20:04)
[2019-12-17] MEDS ORDERED: BOOSTRIX/ADACEL VACCINE (DIPHTH/PERTUSS/ACELL/TETANUS) 0.5ML SYR IM ONE (20:30)
== END 2019-12-17 21:20 | disposition left against medical advice (07) ==
LOC: M ED 19:49
DX: S99.912A Unspecified injury of left ankle, initial encounter (principal); W10.9XXA Fall (on) (from) unspecified stairs and steps, initial encounter; Y92.9 Unspecified place or not applicable; Y93.9 Activity, unspecified; Y99.9 Unspecified external cause status; Z88.2 Allergy status to sulfonamides; Z79.899 Other long term (current) drug therapy

== ENCOUNTER → 2020-01-18 | Emergency (ER) | payer OTHER ==
[~2020-01-18] MED LIST changes: +ACAM0.05 PO; +ACET-907 PO; +ACETAMINOPHEN TAB 650MG DOSE (2X325MG) As Ordered ONE; +ACETAMINOPHEN TAB 650MG DOSE (2X325MG) ONE; +CLON-412 PO; +ISOVUE-370 76% 100ML VIAL As Ordered ONE; +NALOXONE 2MG/2ML SYRINGE (J2310 PER 1MG) As Ordered ONE; +NALOXONE 2MG/2ML SYRINGE (J2310 PER 1MG) ONE; +OMEP-218 PO; +ONDA-83; +ONDA-83 PO; +PROP20TA82 PO; +PROPOFOL 1,000 MG/100 ML VIAL As Ordered ONE; +QUET200T2 PO; +RISP1TAB3 PO; +SUMA50TA2 PO; +TIZA4TAB4 PO
[2020-03-04 22:12] LABS: BASO # 0.1 10^3/uL (0.0-0.2); BASO % 0.5 % (0.0-1.0); EOS # 0.4 10^3/uL (0.0-0.5); EOS % 3.5 % (0.0-3.0); HEMATOCRIT 40.3 % (36.0-47.0); HEMOGLOBIN 13.1 g/dl (12.0-15.5); LYMPH # 3.9 10^3/uL (1.5-5.0); LYMPH % 37.3 % (24.0-44.0); MEAN CORPUSCULAR HEMOGLOBIN 31.2 pg (27.0-33.0); MEAN CORPUSCULAR HGB CONC 32.5 g/dl (32.0-36.5); MONO # 0.6 10^3/uL (0.0-0.8); MONO % 5.3 % (0.0-5.0); NEUTROPHILS # 5.5 10^3/uL (1.5-8.5); NEUTROPHILS % 52.9 % (36.0-66.0); PLATELET COUNT, AUTOMATED 126 10^3/uL (150-450); WHITE BLOOD COUNT 10.4 10^3/uL (4.0-10.0)
[2020-04-02 22:30] LABS: ALBUMIN 3.7 GM/DL (3.2-5.2); ALT/SGPT 82 U/L (12-78); BILIRUBIN,DIRECT < 0.1 MG/DL (0.0-0.2); BILIRUBIN,TOTAL 0.3 MG/DL (0.2-1.0); BLOOD UREA NITROGEN 12 MG/DL (7-18); CALCIUM LEVEL 9.6 MG/DL (8.5-10.1); CARBON DIOXIDE LEVEL 28 MEQ/L (21-32); CHLORIDE LEVEL 111 MEQ/L (98-107); CREATININE FOR GFR 0.78 MG/DL (0.55-1.30); GLOMERULAR FILTRATION RATE > 60.0 (>60); GLUCOSE, FASTING 84 MG/DL (70-100); HCG, SERUM QUALITATIVE NEGATIVE (NEGATIVE); POTASSIUM SERUM 4.5 MEQ/L (3.5-5.1); SODIUM LEVEL 143 MEQ/L (136-145); TOTAL PROTEIN 7.3 GM/DL (6.4-8.2)
== END | disposition home or self-care (01) ==
LOC: M ED 20:04
DX: S22.32XA Fracture of one rib, left side, initial encounter for closed fracture (principal); M25.512 Pain in left shoulder; M25.552 Pain in left hip; V49.50XA Passenger injured in collision with unspecified motor vehicles in traffic accident, initial encounter; J43.8 Other emphysema; Z53.8 Procedure and treatment not carried out for other reasons; I10 Essential (primary) hypertension; Z88.2 Allergy status to sulfonamides; Z79.899 Other long term (current) drug therapy
CPT/HCPCS: 36415; 70450; 71250; 72125; 73030; 73521; 74176; 80048; 80076; 84703; 85025; 96372; 99284; J2310

== ENCOUNTER 2020-01-20 13:30 | Emergency (ER) | payer OTHER ==
[~2020-01-20 13:30] MED LIST changes: -ACAM0.05 PO; -ACET-907 PO; -ACETAMINOPHEN TAB 650MG DOSE (2X325MG) As Ordered ONE; -ACETAMINOPHEN TAB 650MG DOSE (2X325MG) ONE; -CLON-412 PO; -ISOVUE-370 76% 100ML VIAL As Ordered ONE; -NALOXONE 2MG/2ML SYRINGE (J2310 PER 1MG) As Ordered ONE; -NALOXONE 2MG/2ML SYRINGE (J2310 PER 1MG) ONE; -OMEP-218 PO; -ONDA-83 PO; -PROP20TA82 PO; -PROPOFOL 1,000 MG/100 ML VIAL As Ordered ONE; -QUET200T2 PO; -RISP1TAB3 PO; -SUMA50TA2 PO; -TIZA4TAB4 PO
== END 2020-01-20 15:52 | disposition home or self-care (01) ==
LOC: M ED 13:30
DX: M54.2 Cervicalgia (principal); M25.512 Pain in left shoulder; V49.50XA Passenger injured in collision with unspecified motor vehicles in traffic accident, initial encounter; Z53.9 Procedure and treatment not carried out, unspecified reason; G47.00 Insomnia, unspecified; R56.9 Unspecified convulsions; Z88.2 Allergy status to sulfonamides; Z79.899 Other long term (current) drug therapy

== ENCOUNTER → 2020-01-21 | Outpatient (CLI) | payer MEDICAID ==
[~2020-01-21] MED LIST changes: +ACAM0.05 PO; +ACET-907 PO; +CLON-412 PO; +OMEP-218 PO; +ONDA-83 PO; +PROP20TA82 PO; +QUET200T2 PO; +RISP1TAB3 PO; +SUMA50TA2 PO; +TIZA4TAB4 PO
== END ==
LOC: M OUTALCOH 08:00
PROVIDERS: ATTEND Psychiatry & Neurology Addiction Medicine
DX: F10.20 Alcohol dependence, uncomplicated (principal)

== ENCOUNTER 2020-02-02 21:44 | Inpatient (IN) | payer OTHER ==
[~2020-02-02] VITALS: Ht 157.5 cm; Wt 66.0 kg
[~2020-02-02 21:44] MED LIST changes: -ACAM0.05 PO; -ACET-907 PO; -CLON-412 PO; -OMEP-218 PO; -ONDA-83 PO; -PROP20TA82 PO; -QUET200T2 PO; -RISP1TAB3 PO; -SUMA50TA2 PO; -TIZA4TAB4 PO
[2020-02-02] MEDS ORDERED: NALOXONE 2MG/2ML SYRINGE (J2310 PER 1MG) IV ONE (22:00)
[2020-02-02] MEDS ORDERED: NS 1,000 ML IV ONE (22:00)
[2020-02-02] MEDS ORDERED: PROPOFOL 1,000 MG/100 ML VIAL As Ordered ONE (22:09)
[2020-02-02 22:14] LABS: HEMATOCRIT 38.1 % (36.0-47.0); HEMOGLOBIN 12.7 g/dl (12.0-15.5); MEAN CORPUSCULAR HEMOGLOBIN 31.4 pg (27.0-33.0); MEAN CORPUSCULAR HGB CONC 33.3 g/dl (32.0-36.5); MEAN CORPUSCULAR VOLUME 94.3 fl (80.0-96.0); PLATELET COUNT, AUTOMATED 251 10^3/uL (150-450); RED BLOOD COUNT 4.04 10^6/uL (4.00-5.40); WHITE BLOOD COUNT 9.5 10^3/uL (4.0-10.0)
[2020-02-02] MEDS ORDERED: ROCURONIUM BROMIDE 50 MG/5 ML VIAL IV ONE (22:15)
[2020-02-02] MEDS ORDERED: ETOMIDATE INJ 20MG/10ML VIAL IV ONE (22:15)
[2020-02-02 22:34] LABS: ATYPICAL LYMPH 5 % (0-5); BASOPHILS 1 % (0-1); EOSINOPHILS 1 % (0-3); LYMPHOCYTES 33 % (16-44); MONOCYTES 4 % (0-5); MYELOCYTES 4 % (0-0); NEUTROPHILS 49 % (28-66)
[2020-02-02 22:35] LABS: ANISOCYTOSIS 1+; PLATELET ESTIMATE NORMAL (NORMAL); TEAR DROP CELLS 1+
[2020-02-02 22:36] LABS: HCG, SERUM QUALITATIVE NEGATIVE (NEGATIVE)
[2020-02-02 22:37] LABS: OSMOLALITY SERUM 343 MOSM/KG (275-295)
[2020-02-02 22:54] LABS: ACETAMINOPHEN LEVEL < 2.0 UG/ML (10.0-30.0); ALBUMIN 3.8 GM/DL (3.2-5.2); ALT/SGPT 64 U/L (12-78); BILIRUBIN,DIRECT < 0.1 MG/DL (0.0-0.2); BILIRUBIN,TOTAL 0.2 MG/DL (0.2-1.0); BLOOD UREA NITROGEN 16 MG/DL (7-18); CALCIUM LEVEL 8.9 MG/DL (8.5-10.1); CARBON DIOXIDE LEVEL 25 MEQ/L (21-32); CHLORIDE LEVEL 111 MEQ/L (98-107); CPK CREATINE PHOSPHOKINASE 106 U/L (26-192); CREATININE FOR GFR 0.73 MG/DL (0.55-1.30); ETHYL ALCOHOL (ETHANOL) 0.205 % (0.000-0.010); GLOMERULAR FILTRATION RATE > 60.0 (>60); GLUCOSE, FASTING 88 MG/DL (70-100); POTASSIUM SERUM 3.3 MEQ/L (3.5-5.1); SALICYLATE LEVEL 3.6 MG/DL (5.0-30.0); SODIUM LEVEL 146 MEQ/L (136-145); THYROID STIMULATING HORMONE 0.395 uIU/ML (0.358-3.740); TOTAL PROTEIN 7.7 GM/DL (6.4-8.2)
[2020-02-02] MEDS ORDERED: propofoL 200 MG/20 ML VIAL As Ordered ONE (23:10)
--- NOTE | 2020-02-02 23:12 | REPVR ---
PROCEDURE INFORMATION: Exam: CT Head Without Contrast Exam date and time: 02/02/2020 10:48 PM Age: 34 years old Clinical indication: Pain; Headache TECHNIQUE: Imaging protocol: Computed tomography of the head without contrast. Radiation optimization: All CT scans at this facility use at least one of these dose optimization techniques: automated exposure control; mA and/or kV adjustment per patient size (includes targeted exams where dose is matched to clinical indication); or iterative reconstruction. COMPARISON: CT Head without contrast 2017-02-25 22:12 FINDINGS: Brain: Normal. No hemorrhage. Unremarkable white matter. No mass effect. Ventricles: Normal. No ventriculomegaly. Bones/joints: Unremarkable. No acute fracture. Sinuses: Visualized sinuses are unremarkable. No fluid levels. Mastoid air cells: Visualized mastoid air cells are well aerated. Soft tissues: Unremarkable. IMPRESSION: No acute intracranial abnormality. Electronically signed by: Otto Dowell On 02/02/2020 23:12:14 PM
[2020-02-02] MEDS ORDERED: DEXTROSE 50% 50 ML SYRINGE IV PRN (23:15)
[2020-02-02] MEDS ORDERED: GLUCOSE 4GM CHEW TABLET PO PRN (23:15)
[2020-02-02] MEDS ORDERED: GLUCAGON INJ 1MG VIAL SC PRN (23:15)
[2020-02-02] MEDS ORDERED: propofoL 1,000 MG in IV 1 EA IV SCH (23:19)
[2020-02-02 23:20] LABS: AMPHETAMINES LEVEL URINE NEGATIVE (NEGATIVE)
[2020-02-02 23:21] LABS: BARBITURATES URINE NEGATIVE (NEGATIVE); BENZODIAZEPINES URINE NEGATIVE (NEGATIVE); CANNABINOIDS URINE POSITIVE (NEGATIVE); COCAINE METABOLITE URINE NEGATIVE (NEGATIVE); METHADONE URINE NEGATIVE (NEGATIVE); OPIATES URINE NEGATIVE (NEGATIVE); PHENCYCLIDINE URINE NEGATIVE (NEGATIVE)
[2020-02-02] MEDS ORDERED: PROP20TA82 PO (23:26)
[2020-02-02] MEDS ORDERED: SUMA50TA2 PO (23:26)
[2020-02-02] MEDS ORDERED: QUET200T2 PO (23:26)
[2020-02-02] MEDS ORDERED: ALPR1TAB3 PO (23:26)
[2020-02-02] MEDS ORDERED: ACAM0.05 PO (23:26)
[2020-02-02] MEDS ORDERED: ONDA-83 PO (23:26)
[2020-02-02] MEDS ORDERED: TIZA4TAB4 PO (23:26)
[2020-02-02] MEDS ORDERED: GABA600T4 PO (23:26)
[2020-02-02] MEDS ORDERED: ACET-907 PO (23:26)
[2020-02-02] MEDS ORDERED: RISP1TAB3 PO (23:26)
[2020-02-02] MEDS ORDERED: OMEP-218 PO (23:26)
[2020-02-02] MEDS ORDERED: CLON-412 PO (23:26)
[2020-02-02] MEDS ORDERED: PATIENT COMMENT (23:27)
[2020-02-02] MEDS ORDERED: ROCURONIUM BROMIDE 50 MG/5 ML VIAL ONE (23:51)
[2020-02-02] MEDS ORDERED: ETOMIDATE INJ 20MG/10ML VIAL ONE (23:51)
[2020-02-03] VITALS (16 sets, daily range): BP systolic 149–185; BP diastolic 100–122; O2SAT 100
[2020-02-03] MEDS: D5W/0.9% SODIUM CHLORIDE 1,000 ML IV SCH ×2 (00:07→08:39)
[2020-02-03] MEDS ORDERED: METAL LOCK LOOP XX ONE (01:39)
[2020-02-03] MEDS ORDERED: NITROGLYCERIN 2% OINT 1 GM *U/D* PKT As Ordered ONE (01:45)
[2020-02-03] MEDS: HumaLOG INSULIN (NovoLOG) PER UNIT SC SCH ×2 (02:35→06:00)
[2020-02-03] MEDS: propofoL 1,000 MG in IV 1 EA IV SCH ×3 (02:36→08:36)
[2020-02-03] MEDS: MIDAZOLAM INJ 2MG/2ML VIAL (J2250 PER 1MG) IV PRN ×8 (04:47→09:44)
[2020-02-03] MEDS ORDERED: HEPARIN SOD (PORCINE) 5000UNITS/ML 1ML VIAL/SYRINGE SC SCH (06:00)
[2020-02-03 06:09] LABS: ABG BASE EXCESS -0.2 (-2.0-2.0); ABG HCO3 24.4 MEQ/L (22.0-26.0); ABG O2 SATURATION 94.6 % (95.0-99.0); ABG PARTIAL PRESSURE CO2 39.3 mmHg (35.0-45.0); ABG PARTIAL PRESSURE O2 74.8 mmHg (75.0-100.0); ABG STANDARD HCO3 24.3 MEQ/L (22.0-26.0); ABG TOTAL CO2 25.6 MEQ/L (22.0-29.0)
[2020-02-03 06:52] LABS: BASO # 0.1 10^3/uL (0.0-0.2); BASO % 0.7 % (0.0-1.0); EOS # 0.3 10^3/uL (0.0-0.5); HEMATOCRIT 40.7 % (36.0-47.0); HEMOGLOBIN 13.1 g/dl (12.0-15.5); LYMPH # 3.4 10^3/uL (1.5-5.0); LYMPH % 40.8 % (24.0-44.0); MEAN CORPUSCULAR HEMOGLOBIN 31.1 pg (27.0-33.0); MEAN CORPUSCULAR HGB CONC 32.2 g/dl (32.0-36.5); MEAN CORPUSCULAR VOLUME 96.7 fl (80.0-96.0); MONO # 0.4 10^3/uL (0.0-0.8); MONO % 5.2 % (0.0-5.0); NEUTROPHILS # 4.1 10^3/uL (1.5-8.5); NEUTROPHILS % 49.8 % (36.0-66.0); RED BLOOD COUNT 4.21 10^6/uL (4.00-5.40); WHITE BLOOD COUNT 8.2 10^3/uL (4.0-10.0)
[2020-02-03 07:07] LABS: ALT/SGPT 70 U/L (12-78); BLOOD UREA NITROGEN 13 MG/DL (7-18); CALCIUM LEVEL 8.4 MG/DL (8.5-10.1); CARBON DIOXIDE LEVEL 23 MEQ/L (21-32); CHLORIDE LEVEL 114 MEQ/L (98-107); CREATININE FOR GFR 0.65 MG/DL (0.55-1.30); GLOMERULAR FILTRATION RATE > 60.0 (>60); GLUCOSE, FASTING 81 MG/DL (70-100); LDH LACTATE DEHYDROGENASE 312 U/L (84-246); PHOSPHORUS LEVEL 2.8 MG/DL (2.5-4.9); POTASSIUM SERUM 3.3 MEQ/L (3.5-5.1); SODIUM LEVEL 144 MEQ/L (136-145)
[2020-02-03 07:08] LABS: ALBUMIN 3.4 GM/DL (3.2-5.2); BILIRUBIN,TOTAL 0.3 MG/DL (0.2-1.0); CHOLESTEROL LEVEL 139 MG/DL (< 200); CPK CREATINE PHOSPHOKINASE 109 U/L (26-192); MAGNESIUM LEVEL 1.8 MG/DL (1.8-2.4); TOTAL PROTEIN 7.6 GM/DL (6.4-8.2); TRIGLYCERIDES LEVEL 270 MG/DL (<150)
[2020-02-03] MEDS ORDERED: ALBUTEROL SULFATE 2.5 MG/0.5 ML INH NEB SOLN NEB SCH (08:00)
[2020-02-03] MEDS ORDERED: hydrALAZINE 20MG/ML 1ML VIAL (J0360 PER 20MG) As Ordered ONE (08:21)
[2020-02-03 08:22] LABS: PLATELET COUNT, AUTOMATED 215 10^3/uL (150-450)
--- NOTE | 2020-02-03 08:42 | REPVR ---
PROCEDURE INFORMATION: Exam: XR Chest, 1 View Exam date and time: 02/03/2020 7:59 AM Age: 34 years old Clinical indication: Device placement; Chest tube; Additional info: Tube placement TECHNIQUE: Imaging protocol: XR of the chest Views: 1 view. COMPARISON: CR PORTABLE CHEST X-RAY 02/03/2020 6:04 AM (report not provided) FINDINGS: Tubes, catheters and devices: Endotracheal tube has been advanced, with its tip now approximately 1.5 cm proximal to the janice. Nasogastric tube is again present with its tip in the stomach. Lungs: Unremarkable. No consolidation. Pleural space: Unremarkable. No pleural effusion. No pneumothorax. Heart/Mediastinum: The cardiomediastinal silhouette is fairly stable in appearance. Bones/joints: Unremarkable. IMPRESSION: Nasogastric tube advanced since earlier the same day, tip approximately 1.5 cm proximal to janice. This may be retracted 1 cm. Electronically signed by: Ruel Day On 02/03/2020 08:42:49 AM
[2020-02-03] MEDS ORDERED: CHLORHEXIDINE GLUCONATE 0.12 % 15ML UDC (PERIDEX ORAL RINSE) MT SCH (09:00)
[2020-02-03] MEDS ORDERED: hydrALAZINE 20MG/ML 1ML VIAL (J0360 PER 20MG) IV SCH (09:00)
[2020-02-03] MEDS ORDERED: PANTOPRAZOLE 40MG VIAL (C9113 PER 1) IV SCH (09:00)
--- NOTE | 2020-02-19 14:31 | ECGEPIP ---
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
--- NOTE | 2020-03-04 08:30 | REP ---
PORTABLE CHEST X-RAY CLINICAL: Drug overdose. FINDINGS: Endotracheal tube 1.5 cm above the janice. Nasogastric tube courses below the left hemidiaphragm. The cardiac silhouette is normal. Lung howard are relatively clear and without focal consolidation, effusion, or pneumothorax. Trace bibasilar atelectasis cannot be excluded. IMPRESSION: * Endotracheal tube and nasogastric tube as above. * Cannot exclude subtle bibasilar atelectasis. MTDD
--- NOTE | 2020-03-04 13:05 | REP ---
PORTABLE CHEST X-RAY CLINICAL: Endotracheal tube placement. COMPARISON: 02/02/2020. FINDINGS: Endotracheal tube 4.5 cm above the janice. Nasogastric tube courses below the left hemidiaphragm. The mediastinum and cardiac silhouette are normal. Lung howard are relatively clear without focal consolidation, effusion, or pneumothorax. Skeletal structures intact. IMPRESSION: * Endotracheal tube and nasogastric tube in satisfactory position. * No focal consolidation. MTDD
--- NOTE | 2020-03-17 07:57 | HPE ---
DATE OF ADMISSION: 02/02/2020 I was called to the emergency department to evaluate this 34-year-old female brought by emergency medical services (EMS) unresponsive after ingestion of an unknown quantity of pills and alcohol. There was no response to multiple doses of Narcan. In the emergency department, she was unresponsive with unstable airway, and an endotracheal tube was placed and she has been sedated. There is a past medical history in the electronic health record of anxiety, obsessive compulsive disorder, and substance abuse. On my arrival she is obtunded. No response to pain. At bedside her temperature is 98.1, pulse rate 81, respirations 16, blood pressure 162/112. HEENT: Her pupils are small and reactive. Endotracheal and orogastric tubes are in good position. Mucosa is moist. Neck is supple. No meningismus. Heart sounds are regular without appreciable murmur. Breath sounds are coarse, clear bilaterally. No focal sounds. Abdomen is soft. Intact bowel sounds in the right lower quadrant, albeit diminished. Extremities are atraumatic, flaccid. Pulses are palpable times four. There are multiple tattoos. DIAGNOSTIC STUDIES: Chest x-ray shows the endotracheal tube in good position. CT scan of the head: There is no report available. I see no asymmetry or evidence of bleeding The white cell count is 9.5, hemoglobin 12.7, hematocrit 38.1, platelet count 251,000. Sodium 141, potassium 5.3, chloride 107, CO2 of 24, BUN 23, creatinine 0.9, glucose 95. Arterial blood gases showed a pH 7.30, pCO2 of 45, pO2 of 54. Serum alcohol level is 0.2005. Toxicology screen is pending. The primary problem requiring critical attention is polysubstance overdose. The patient has been unresponsive to Narcan. We will initiate supportive care and hydration. 1. Acute respiratory failure requiring mechanical ventilation. We will provide sedation with propofol and monitor gas exchange. 2. Deep venous thrombosis (DVT) prophylaxis will be addressed with subcutaneous heparin and sequential hose. 3. Ulcer prophylaxis will be addressed with Protonix. 4. Glycemic control will be managed with fingerstick blood sugars every 6 and insulin coverage. The patient's condition is critical. Prognosis is guarded. One hour and 27 minutes was spent in the provision of bedside critical care and coordination in excess of procedure time. [facility]
--- NOTE | 2020-03-17 08:00 | CCN ---
DATE: 02/03/2020 I was called urgently to patient's bedside. She is intubated, mechanically ventilated, and critically ill. She had pulled her endotracheal tube, partially displacing it. At bedside she is in moderate distress despite high doses of propofol and Versed. Her temperature is 97, pulse rate 88, respirations 20, blood pressure 175/111. Intake and output for the past 24 hours: 1900 in, 1065 out. At bedside, she is ill appearing. Oral mucosa is pink and dry. The endotracheal tube is at 21 cm. Cuff was deflated, and the tube was advanced to 23 cm with good seal and bilateral breath sounds. The heart sounds are regular without appreciable murmur. Breath sounds are essentially clear. Abdomen is soft with bowel sounds in the right lower quadrant. Extremities are cool. Pulses palpable. No deformities. DIAGNOSTIC STUDIES: Her sodium is 144, potassium 3.3, chloride 114, CO2 of 23, BUN 13, creatinine 0.65, glucose 81. White cell count is 8.2, hemoglobin 13.1, hematocrit 40.7, platelet count 215,000. Arterial blood gases show a pH 7.41, pCO2 of 39, pCO2 of 75. AST is 60, ALT is 20. Chest x-ray was reviewed, and following repositioning of the endotracheal tube, the tube is in good position. There are good bilateral lung howard fully inflated. No new infiltrates. The primary problem requiring critical attention is multidrug overdose. The patient is displaying hypertension this morning, possibly toxin related, possibly anxiety related. Will continue with supportive care and begin hydralazine to address the hypertension. She did not respond effectively to topical nitrates. Respiratory failure. Arterial blood gases are acceptable. We will decrease the minute ventilation and proceed with weaning. Possible suicide attempt. When the patient is effectively weaned and extubated, we will consult with psychiatry for management and recommendations. The patient's condition is critical. Prognosis is guarded. One hour and 34 minutes was spent in the provision of bedside critical care and coordination, excluding any time for procedures. [facility]
== END 2020-02-03 11:19 | disposition left against medical advice (07) | DRG 812 ==
LOC: M ED 21:44 → M ED INP 23:15 → M ICU 02-03 02:03
PROVIDERS: ADMIT Internal Medicine Pulmonary Disease; ATTEND Internal Medicine Pulmonary Disease
PROC: 5A1935Z Respiratory Ventilation, Less than 24 Consecutive Hours (ICD-10-PCS; principal; 2020-02-02)
DX: T40.7X2A Poisoning by cannabis (derivatives), intentional self-harm, initial encounter (principal); J96.00 Acute respiratory failure, unspecified whether with hypoxia or hypercapnia; Z79.899 Other long term (current) drug therapy

== ENCOUNTER → 2020-02-10 | Outpatient (REF) | payer OTHER, MEDICAID ==
[~2020-02-10] MED LIST changes: +ACAM0.05 PO; +ACET-907 PO; +CLON-412 PO; +OMEP-218 PO; +ONDA-83 PO; +PROP20TA82 PO; +QUET200T2 PO; +RISP1TAB3 PO; +SUMA50TA2 PO; +TIZA4TAB4 PO
[2020-02-10 19:09] LABS: BASO # 0.1 10^3/uL (0.0-0.2); BASO % 0.5 % (0.0-1.0); EOS # 0.3 10^3/uL (0.0-0.5); EOS % 2.7 % (0.0-3.0); HEMATOCRIT 37.9 % (36.0-47.0); HEMOGLOBIN 12.3 g/dl (12.0-15.5); LYMPH # 3.5 10^3/uL (1.5-5.0); LYMPH % 35.6 % (24.0-44.0); MEAN CORPUSCULAR HEMOGLOBIN 30.9 pg (27.0-33.0); MEAN CORPUSCULAR HGB CONC 32.5 g/dl (32.0-36.5); MEAN CORPUSCULAR VOLUME 95.2 fl (80.0-96.0); MONO # 0.3 10^3/uL (0.0-0.8); MONO % 2.9 % (0.0-5.0); NEUTROPHILS # 5.8 10^3/uL (1.5-8.5); PLATELET COUNT, AUTOMATED 289 10^3/uL (150-450); RED BLOOD COUNT 3.98 10^6/uL (4.00-5.40); WHITE BLOOD COUNT 9.9 10^3/uL (4.0-10.0)
[2020-02-10 19:23] LABS: ALBUMIN 3.4 GM/DL (3.2-5.2); ALT/SGPT 72 U/L (12-78); BILIRUBIN,TOTAL 0.2 MG/DL (0.2-1.0); BLOOD UREA NITROGEN 11 MG/DL (7-18); CALCIUM LEVEL 9.6 MG/DL (8.5-10.1); CARBON DIOXIDE LEVEL 27 MEQ/L (21-32); CHLORIDE LEVEL 109 MEQ/L (98-107); CREATININE FOR GFR 0.67 MG/DL (0.55-1.30); GLOMERULAR FILTRATION RATE > 60.0 (>60); GLUCOSE, FASTING 91 MG/DL (70-100); SODIUM LEVEL 142 MEQ/L (136-145); TOTAL PROTEIN 6.9 GM/DL (6.4-8.2)
[2020-02-10 19:31] LABS: HEPATITIS B SURFACE ANTIBODY POSITIVE (POSITIVE)
[2020-02-10 19:43] LABS: HEPATITIS B SURFACE ANTIGEN NEGATIVE (NEGATIVE)
[2020-02-10 20:11] LABS: HIV 1&2 SCREEN CENTAUR NEGATIVE (NEGATIVE)
[2020-02-10 20:16] LABS: HEPATITIS C VIRUS ABY INDEX > 11.0 INDEX (<0.8)
[2020-02-19 01:07] LABS: HCV RNA (INTERNATIONAL UNITS) 19418000 IU/mL (.); HEPATITIS A IgG TOTAL Positive (Negative); HEPATITIS B CORE ANTIBODY IGG Negative (Negative); HEPATITIS C QUANTITATION See Final Results IU/mL (.)
== END ==
LOC: M LAB REF 18:13
PROVIDERS: ATTEND Nurse Practitioner Adult Health
DX: B18.2 Chronic viral hepatitis C (principal)

== ENCOUNTER → 2020-02-26 | Outpatient (CLI) | payer OTHER, MEDICAID ==
[2020-02-26 17:12] LABS: ALBUMIN 3.9 GM/DL (3.2-5.2); ALT/SGPT 86 U/L (12-78); BILIRUBIN,TOTAL 0.4 MG/DL (0.2-1.0); BLOOD UREA NITROGEN 7 MG/DL (7-18); CALCIUM LEVEL 9.1 MG/DL (8.5-10.1); CARBON DIOXIDE LEVEL 23 MEQ/L (21-32); CHLORIDE LEVEL 107 MEQ/L (98-107); CREATININE FOR GFR 0.67 MG/DL (0.55-1.30); FREE T4 1.04 NG/DL (0.76-1.46); GLOMERULAR FILTRATION RATE > 60.0 (>60); GLUCOSE, FASTING 90 MG/DL (70-100); POTASSIUM SERUM 3.4 MEQ/L (3.5-5.1); SODIUM LEVEL 139 MEQ/L (136-145); THYROID STIMULATING HORMONE 0.509 uIU/ML (0.358-3.740); TOTAL PROTEIN 8.3 GM/DL (6.4-8.2)
[2020-02-26 17:23] LABS: TOTAL 25(OH) VITAMIN D 22.2 NG/ML (30.0-100.0)
== END ==
LOC: M LAB 15:54
PROVIDERS: ATTEND Physician Assistant
DX: F31.89 Other bipolar disorder (principal)

== ENCOUNTER 2020-04-25 07:35 | Emergency (ER) | payer MEDICAID, OTHER ==
[~2020-04-25] VITALS: Ht 160 cm; Wt 63.7 kg
[2020-04-25 09:00] LABS: ACETAMINOPHEN LEVEL < 2.0 UG/ML (10.0-30.0); ALBUMIN 4.6 GM/DL (3.2-5.2); ALT/SGPT 40 U/L (12-78); BILIRUBIN,DIRECT 0.3 MG/DL (0.0-0.2); BILIRUBIN,TOTAL 0.9 MG/DL (0.2-1.0); BLOOD UREA NITROGEN 33 MG/DL (7-18); C REACTIVE PROTEIN QUANTITATIV 2.42 MG/DL (0.00-0.30); CALCIUM LEVEL 9.6 MG/DL (8.5-10.1); CARBON DIOXIDE LEVEL 22 MEQ/L (21-32); CHLORIDE LEVEL 106 MEQ/L (98-107); CPK CREATINE PHOSPHOKINASE 119 U/L (26-192); CREATININE FOR GFR 0.98 MG/DL (0.55-1.30); ETHYL ALCOHOL (ETHANOL) < 0.003 % (0.000-0.010); GLOMERULAR FILTRATION RATE > 60.0 (>60); GLUCOSE, FASTING 104 MG/DL (70-100); POTASSIUM SERUM 3.2 MEQ/L (3.5-5.1); SALICYLATE LEVEL < 1.7 MG/DL (5.0-30.0); SODIUM LEVEL 139 MEQ/L (136-145); THYROID STIMULATING HORMONE 0.954 uIU/ML (0.358-3.740); TOTAL PROTEIN 8.9 GM/DL (6.4-8.2)
[2020-04-25 09:08] LABS: HCG, SERUM QUALITATIVE NEGATIVE (NEGATIVE)
[2020-04-25 09:19] LABS: ERYTHROCYTE SEDIMENTATION RATE 52 mm/hr (0-20)
--- NOTE | 2020-04-25 10:04 | REP ---
INDICATION: tide pod injection COMPARISON: None. TECHNIQUE: Four views obtained. FINDINGS: There is no evidence of acute fracture, dislocation, or intrinsic bone disease. IMPRESSION: No fracture or dislocation. <Electronically signed by Trav Dumont > 04/25/20 1000
[2020-04-25] MEDS ORDERED: LORazepam 2 MG/ML VIAL IV STA ×2 (10:14→10:38)
--- NOTE | 2020-04-25 10:26 | ECGEPIP ---
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
[2020-04-25] MEDS ORDERED: HALOPERIDOL 5MG/ML VIAL (J1630 PER 1) IM STA (10:38)
[2020-04-25] MEDS ORDERED: diphenhydrAMINE 50MG/ML VIAL (J1200) IV ONE (10:45)
[2020-04-25 10:49] LABS: AMPHETAMINES LEVEL URINE POSITIVE (NEGATIVE); BARBITURATES URINE NEGATIVE (NEGATIVE); BENZODIAZEPINES URINE POSITIVE (NEGATIVE); CANNABINOIDS URINE POSITIVE (NEGATIVE); COCAINE METABOLITE URINE NEGATIVE (NEGATIVE); METHADONE URINE NEGATIVE (NEGATIVE); OPIATES URINE NEGATIVE (NEGATIVE); PHENCYCLIDINE URINE NEGATIVE (NEGATIVE)
[2020-04-25 10:57] LABS: HEMATOCRIT 39.6 % (36.0-47.0); HEMOGLOBIN 12.9 g/dl (12.0-15.5); MEAN CORPUSCULAR HEMOGLOBIN 29.9 pg (27.0-33.0); MEAN CORPUSCULAR HGB CONC 32.6 g/dl (32.0-36.5); MEAN CORPUSCULAR VOLUME 91.7 fl (80.0-96.0); PLATELET COUNT, AUTOMATED 364 10^3/uL (150-450); RED BLOOD COUNT 4.32 10^6/uL (4.00-5.40); WHITE BLOOD COUNT 15.4 10^3/uL (4.0-10.0)
[2020-04-25] MEDS ORDERED: CEPHALEXIN 500 MG CAP PO ONE (11:45)
[2020-04-25] MEDS ORDERED: KEFL500C17 PO (19:10)
[2020-04-25 19:40] VITALS: BP 158/94
== END 2020-04-25 19:45 | disposition home or self-care (01) ==
LOC: EDBD 07:35 → M ED 07:35
DX: F19.159 Other psychoactive substance abuse with psychoactive substance-induced psychotic disorder, unspecified (principal); L03.114 Cellulitis of left upper limb; R94.31 Abnormal electrocardiogram [ECG] [EKG]; I10 Essential (primary) hypertension; F31.9 Bipolar disorder, unspecified; F42.9 Obsessive-compulsive disorder, unspecified; F17.200 Nicotine dependence, unspecified, uncomplicated; Z88.2 Allergy status to sulfonamides; Z79.899 Other long term (current) drug therapy
CPT/HCPCS: 36415; 73110; 80048; 80076; 80307; 82550; 84443; 84703; 85027; 85652; 86140; 93005; 93041; 96372; 96374; 96375; 96376; 99285; G0480; J1200; J1630; J2060

== ENCOUNTER 2021-09-04 11:11 | Emergency (ER) | payer OTHER ==
[~2021-09-04] VITALS: Ht 154.9 cm; Wt 63.6 kg
[~2021-09-04 11:11] MED LIST changes: +AMLO1TAB24; +CLON0.2T PO; -DICY20TA PO; +DICY20TA3 PO; +GABA-283 PO; +GABA800T4 PO; +KEFL500C17 PO; +LEXA1TAB2 PO; +METR-265 PO; +NORV5TAB PO; +OMEP-173 PO; -OMEP-218 PO; +OMEP40CA5 PO; +PROM25TA12 PO; +RISP-8; +RISP-8 PO; -RISP1TAB3; -RISP1TAB3 PO; +TIZA10TA PO; -TIZA4TAB4 PO; +VIST50CA PO
[2021-09-04] MEDS ORDERED: LORazepam 2 MG/ML VIAL IV STA (12:41)
[2021-09-04] MEDS ORDERED: PROMETHAZINE 25MG/ML 1ML VIAL IV ONE (12:45)
[2021-09-04] MEDS ORDERED: NS 1,000 ML IV ONE ×2 (12:45)
[2021-09-04] MEDS ORDERED: LORazepam 2 MG/ML VIAL IM STA (13:14)
[2021-09-04] MEDS ORDERED: PROMETHAZINE 25MG/ML 1ML VIAL IM ONE (13:15)
[2021-09-04] MEDS ORDERED: ONDANSETRON 4MG ORAL DISINTEGRATING TAB PO ONE (14:20)
[2021-09-04 15:42] LABS: BASO % 0.1 % (0.0-1.0); HEMATOCRIT 46.3 % (36.0-47.0); HEMOGLOBIN 15.9 g/dl (12.0-15.5); LYMPH # 2.5 10^3/uL (1.5-5.0); LYMPH % 18.3 % (24.0-44.0); MEAN CORPUSCULAR HEMOGLOBIN 29.6 pg (27.0-33.0); MEAN CORPUSCULAR HGB CONC 34.3 g/dl (32.0-36.5); MEAN CORPUSCULAR VOLUME 86.1 fl (80.0-96.0); MONO # 0.4 10^3/uL (0.0-0.8); MONO % 2.7 % (2.0-8.0); NEUTROPHILS # 10.6 10^3/uL (1.5-8.5); NEUTROPHILS % 78.5 % (36.0-66.0); PLATELET COUNT, AUTOMATED 417 10^3/uL (150-450); RED BLOOD COUNT 5.38 10^6/uL (4.00-5.40); WHITE BLOOD COUNT 13.5 10^3/uL (4.0-10.0)
[2021-09-04] MEDS ORDERED: PROCHLORPERAZINE 10MG/2ML VIAL (J0780 PER 1) IV PRN (16:15)
[2021-09-04] MEDS ORDERED: GI COCKTAIL 50ML BTL(HYOSCYAMINE/MAALOX/LIDOCAINE VISCOUS)(1:3:1) PO ONE (16:15)
[2021-09-04 18:11] VITALS: BP 124/82
== END 2021-09-04 18:21 | disposition home or self-care (01) ==
LOC: M ED 11:11
DX: F19.10 Other psychoactive substance abuse, uncomplicated (principal); R00.2 Palpitations; I10 Essential (primary) hypertension; K21.9 Gastro-esophageal reflux disease without esophagitis; G43.909 Migraine, unspecified, not intractable, without status migrainosus; M54.50 Low back pain, unspecified; F41.8 Other specified anxiety disorders; F32.A Depression, unspecified; F17.200 Nicotine dependence, unspecified, uncomplicated; F11.10 Opioid abuse, uncomplicated; F31.9 Bipolar disorder, unspecified; Z88.2 Allergy status to sulfonamides
CPT/HCPCS: 36415; 82550; 83605; 84702; 85025; 93005; 96361; 96372; 96374; 99284; J0780; J2060; J2550

== ENCOUNTER 2021-09-28 23:31 | Emergency (ER) | payer OTHER ==
[~2021-09-28] VITALS: Ht 160 cm; Wt 59.9 kg
[2021-09-29 00:24] VITALS: BP 190/140
[2021-09-29] MEDS ORDERED: VIIB20TA PO (00:24)
[2021-09-29] MEDS ORDERED: HYDR50CA2 PO (00:24)
[2021-09-29] MEDS ORDERED: QUET100T2 PO (08:26)
[2021-09-29] MEDS ORDERED: NORV5TAB PO (15:39)
[2021-09-29] MEDS ORDERED: PROM50TA4 PO (15:42)
== END 2021-09-29 03:05 | disposition left against medical advice (07) ==
LOC: M ED 23:31
DX: Z53.21 Procedure and treatment not carried out due to patient leaving prior to being seen by health care provider (principal)

== ENCOUNTER 2021-09-29 08:15 | Emergency (ER) | payer OTHER ==
[~2021-09-29] VITALS: Ht 160 cm; Wt 59.6 kg
[~2021-09-29 08:15] MED LIST changes: +HYDR50CA2 PO; +VIIB20TA PO
[2021-09-29] MEDS ORDERED: QUET100T2 PO (08:26)
[2021-09-29] MEDS ORDERED: ONDANSETRON 4MG/2ML VIAL IV ONE ×2 (09:05→09:45)
[2021-09-29] MEDS ORDERED: NS 1,000 ML IV ONE (09:10)
[2021-09-29] MEDS ORDERED: ONDANSETRON 4MG ORAL DISINTEGRATING TAB PO ONE (09:30)
[2021-09-29 10:00] LABS: BASO % 0.2 % (0.0-1.0); EOS % 0.1 % (0.0-3.0); LYMPH # 3.4 10^3/uL (1.5-5.0); LYMPH % 22.7 % (24.0-44.0); MEAN CORPUSCULAR HGB CONC 34.1 g/dl (32.0-36.5); MEAN CORPUSCULAR VOLUME 87.8 fl (80.0-96.0); MONO # 0.6 10^3/uL (0.0-0.8); MONO % 4.2 % (2.0-8.0); NEUTROPHILS # 10.8 10^3/uL (1.5-8.5); NEUTROPHILS % 72.5 % (36.0-66.0); PLATELET COUNT, AUTOMATED 413 10^3/uL (150-450); RED BLOOD COUNT 4.67 10^6/uL (4.00-5.40); WHITE BLOOD COUNT 14.9 10^3/uL (4.0-10.0)
[2021-09-29 10:30] LABS: ALT/SGPT 18 U/L (12-78); BILIRUBIN,DIRECT < 0.1 MG/DL (0.0-0.2); BILIRUBIN,TOTAL 0.7 MG/DL (0.2-1.0); LIPASE 77 U/L (73-393); TOTAL PROTEIN 7.9 GM/DL (6.4-8.2)
[2021-09-29 11:19] LABS: BLOOD UREA NITROGEN 22 MG/DL (7-18); CARBON DIOXIDE LEVEL 22 MEQ/L (21-32); CHLORIDE LEVEL 103 MEQ/L (98-107); CREATININE FOR GFR 0.78 MG/DL (0.55-1.30); GLOMERULAR FILTRATION RATE > 60.0 (>60); GLUCOSE, FASTING 101 MG/DL (70-100); POTASSIUM SERUM 3.9 MEQ/L (3.5-5.1); SODIUM LEVEL 138 MEQ/L (136-145)
[2021-09-29 11:49] LABS: HCG, SERUM QUALITATIVE NEGATIVE (NEGATIVE)
[2021-09-29] MEDS ORDERED: ISOVUE-370 76% 100ML VIAL As Ordered ONE ×2 (11:54→12:18)
[2021-09-29] MEDS ORDERED: PERCOCET 5MG/325MG TAB PO ONE (11:55)
[2021-09-29] MEDS ORDERED: PROMETHAZINE 25MG/ML 1ML VIAL IV ONE (12:00)
[2021-09-29] MEDS ORDERED: PANTOPRAZOLE 40MG VIAL IV ONE (14:25)
[2021-09-29] MEDS ORDERED: GI COCKTAIL 50ML BTL(HYOSCYAMINE/MAALOX/LIDOCAINE VISCOUS)(1:3:1) PO ONE (15:35)
[2021-09-29] MEDS ORDERED: NORV5TAB PO (15:39)
[2021-09-29 15:42] VITALS: BP 176/118
[2021-09-29] MEDS ORDERED: PROM50TA4 PO (15:42)
== END 2021-09-29 15:53 | disposition home or self-care (01) ==
LOC: M ED 08:15
DX: E86.0 Dehydration (principal); I10 Essential (primary) hypertension; K21.9 Gastro-esophageal reflux disease without esophagitis; R94.31 Abnormal electrocardiogram [ECG] [EKG]; F42.9 Obsessive-compulsive disorder, unspecified; F31.9 Bipolar disorder, unspecified; M54.50 Low back pain, unspecified; F17.200 Nicotine dependence, unspecified, uncomplicated; F12.10 Cannabis abuse, uncomplicated; Z79.899 Other long term (current) drug therapy; Z88.2 Allergy status to sulfonamides
CPT/HCPCS: 74177; 80047; 80048; 80076; 83690; 84703; 85025; 93005; 96361; 96374; 96375; 99284; C9113; J2405; J2550; Q9967

== ENCOUNTER 2021-11-09 00:59 | Emergency (ER) | payer OTHER ==
[~2021-11-09] VITALS: Ht 154.9 cm; Wt 60.5 kg
[~2021-11-09 00:59] MED LIST changes: +PROM50TA4 PO
[2021-11-09] MEDS ORDERED: LORA1TAB4 PO (01:14)
[2021-11-09] MEDS ORDERED: OMEP40CA5 PO (01:14)
[2021-11-09 06:59] LABS: RSV AMPLIFICATION NEGATIVE (NEGATIVE)
[2021-11-09 07:20] LABS: HEMATOCRIT 42.9 % (36.0-47.0); HEMOGLOBIN 14.1 g/dl (12.0-15.5); MEAN CORPUSCULAR HEMOGLOBIN 29.9 pg (27.0-33.0); MEAN CORPUSCULAR HGB CONC 32.9 g/dl (32.0-36.5); MEAN CORPUSCULAR VOLUME 90.9 fl (80.0-96.0); PLATELET COUNT, AUTOMATED 521 10^3/uL (150-450); RED BLOOD COUNT 4.72 10^6/uL (4.00-5.40); WHITE BLOOD COUNT 10.9 10^3/uL (4.0-10.0)
[2021-11-09 07:52] LABS: HCG, SERUM QUALITATIVE NEGATIVE (NEGATIVE)
[2021-11-09] MEDS: OLANZapine ORAL DISINTEGRATING TAB 5MG PO ONE (08:12)
[2021-11-09] MEDS: cloNIDine 0.2 MG TAB PO ONE (08:12)
[2021-11-09] MEDS: LORazepam 2 MG TAB PO ONE ×2 (08:12→12:38)
[2021-11-09 08:17] LABS: ACETAMINOPHEN LEVEL < 2.0 UG/ML (10.0-30.0); ALBUMIN 4.5 GM/DL (3.2-5.2); ALT/SGPT 19 U/L (12-78); BILIRUBIN,DIRECT < 0.1 MG/DL (0.0-0.2); BILIRUBIN,TOTAL 0.4 MG/DL (0.2-1.0); BLOOD UREA NITROGEN 10 MG/DL (7-18); CALCIUM LEVEL 10.3 MG/DL (8.5-10.1); CARBON DIOXIDE LEVEL 23 MEQ/L (21-32); CHLORIDE LEVEL 106 MEQ/L (98-107); CREATININE FOR GFR 0.69 MG/DL (0.55-1.30); ETHYL ALCOHOL (ETHANOL) < 0.003 % (0.000-0.010); GLOMERULAR FILTRATION RATE > 60.0 (>60); GLUCOSE, FASTING 106 MG/DL (70-100); POTASSIUM SERUM 3.5 MEQ/L (3.5-5.1); SALICYLATE LEVEL 4.6 MG/DL (5.0-30.0); SODIUM LEVEL 140 MEQ/L (136-145)
[2021-11-09 12:23] LABS: AMPHETAMINES LEVEL URINE POSITIVE (NEGATIVE); BARBITURATES URINE NEGATIVE (NEGATIVE); BENZODIAZEPINES URINE NEGATIVE (NEGATIVE); CANNABINOIDS URINE POSITIVE (NEGATIVE); COCAINE METABOLITE URINE NEGATIVE (NEGATIVE); METHADONE URINE NEGATIVE (NEGATIVE); OPIATES URINE NEGATIVE (NEGATIVE); PHENCYCLIDINE URINE NEGATIVE (NEGATIVE)
[2021-11-09] MEDS ORDERED: ARIP1TAB4 PO (12:35)
[2021-11-09 12:38] VITALS: BP 164/100
[2021-11-09] MEDS: LOSARTAN 50MG TABLET PO ONE (12:38)
[2021-11-09] MEDS ORDERED: HOME MED LIST COMPLETE! XX SCH (12:40)
[2021-11-09 14:30] VITALS: BP 138/89
== END 2021-11-09 20:02 | disposition home or self-care (01) ==
LOC: M ED 00:59
DX: F15.10 Other stimulant abuse, uncomplicated (principal); R94.31 Abnormal electrocardiogram [ECG] [EKG]; I10 Essential (primary) hypertension; F31.9 Bipolar disorder, unspecified; F42.9 Obsessive-compulsive disorder, unspecified; F19.10 Other psychoactive substance abuse, uncomplicated; F17.200 Nicotine dependence, unspecified, uncomplicated; Z79.899 Other long term (current) drug therapy; Z88.1 Allergy status to other antibiotic agents; Z88.2 Allergy status to sulfonamides

== ENCOUNTER 2021-11-17 08:17 | Inpatient (IN) | payer OTHER ==
[~2021-11-17] VITALS: Ht 157.5 cm; Wt 55.3 kg
[~2021-11-17 08:17] MED LIST changes: +ARIP1TAB4 PO; +LORA1TAB4 PO
[2021-11-17] MEDS ORDERED: NS 1,000 ML IV ONE ×2 (08:40→10:05)
[2021-11-17] MEDS ORDERED: GI COCKTAIL 50ML BTL(HYOSCYAMINE/MAALOX/LIDOCAINE VISCOUS)(1:3:1) PO ONE (08:40)
[2021-11-17] MEDS ORDERED: ONDANSETRON 4MG/2ML VIAL IV ONE (08:40)
[2021-11-17 09:40] LABS: BASO # 0.1 10^3/uL (0.0-0.2); BASO % 0.3 % (0.0-1.0); EOS % 0.2 % (0.0-3.0); HEMATOCRIT 49.2 % (36.0-47.0); HEMOGLOBIN 16.9 g/dl (12.0-15.5); LYMPH # 4.1 10^3/uL (1.5-5.0); LYMPH % 21.1 % (24.0-44.0); MEAN CORPUSCULAR HEMOGLOBIN 30.5 pg (27.0-33.0); MEAN CORPUSCULAR HGB CONC 34.3 g/dl (32.0-36.5); MEAN CORPUSCULAR VOLUME 88.8 fl (80.0-96.0); MONO # 0.7 10^3/uL (0.0-0.8); MONO % 3.5 % (2.0-8.0); NEUTROPHILS # 14.4 10^3/uL (1.5-8.5); NEUTROPHILS % 74.5 % (36.0-66.0); PLATELET COUNT, AUTOMATED 523 10^3/uL (150-450); RED BLOOD COUNT 5.54 10^6/uL (4.00-5.40); WHITE BLOOD COUNT 19.3 10^3/uL (4.0-10.0)
[2021-11-17] MEDS ORDERED: PIPERACILLIN/TAZOBACTAM SOD 4.5 GM in D5W MINI-BAG PLUS 50 ML IV ONE (10:05)
[2021-11-17] MEDS ORDERED: ALPR1TAB3 PO (11:05)
[2021-11-17] MEDS ORDERED: AMLO1TAB24 PO (11:05)
[2021-11-17] MEDS ORDERED: HOME MED LIST COMPLETE! XX SCH (11:10)
[2021-11-17 11:22] LABS: RSV AMPLIFICATION NEGATIVE (NEGATIVE)
[2021-11-17] MEDS ORDERED: PROMETHAZINE 25MG/ML 1ML VIAL IV ONE (11:50)
[2021-11-17 12:34] LABS: ALBUMIN 4.2 GM/DL (3.2-5.2); ALT/SGPT 20 U/L (12-78); AMYLASE 76 U/L (25-115); BILIRUBIN,DIRECT 0.1 MG/DL (0.0-0.2); BILIRUBIN,TOTAL 0.4 MG/DL (0.2-1.0); BLOOD UREA NITROGEN 29 MG/DL (7-18); CALCIUM LEVEL 9.5 MG/DL (8.5-10.1); CARBON DIOXIDE LEVEL 30 MEQ/L (21-32); CHLORIDE LEVEL 92 MEQ/L (98-107); CREATININE FOR GFR 2.37 MG/DL (0.55-1.30); ETHYL ALCOHOL (ETHANOL) < 0.003 % (0.000-0.010); GLOMERULAR FILTRATION RATE 24.8 (>60); GLUCOSE, FASTING 102 MG/DL (70-100); HCG, SERUM QUANTITATIVE < 1.0 MIU/ML; LIPASE 78 U/L (73-393); POTASSIUM SERUM 3.3 MEQ/L (3.5-5.1); SALICYLATE LEVEL < 1.7 MG/DL (5.0-30.0); SODIUM LEVEL 132 MEQ/L (136-145); THYROID STIMULATING HORMONE 0.466 uIU/ML (0.358-3.740); TOTAL PROTEIN 8.2 GM/DL (6.4-8.2)
[2021-11-17] MEDS ORDERED: LORazepam 2 MG/ML VIAL IV STA (12:42)
[2021-11-17 12:51] LABS: ACETAMINOPHEN LEVEL < 2.0 UG/ML (10.0-30.0)
[2021-11-17 14:12] LABS: MAGNESIUM LEVEL 2.1 MG/DL (1.8-2.4)
[2021-11-17] MEDS ORDERED: LIDOCAINE 2% 5ML JELLY UROJET TOP ONE (14:35)
[2021-11-17 15:38] LABS: AMPHETAMINES LEVEL URINE NEGATIVE (NEGATIVE); BARBITURATES URINE NEGATIVE (NEGATIVE); BENZODIAZEPINES URINE POSITIVE (NEGATIVE); CANNABINOIDS URINE POSITIVE (NEGATIVE); COCAINE METABOLITE URINE NEGATIVE (NEGATIVE); METHADONE URINE NEGATIVE (NEGATIVE); OPIATES URINE NEGATIVE (NEGATIVE); PHENCYCLIDINE URINE NEGATIVE (NEGATIVE)
[2021-11-17] MEDS: NS 1,000 ML IV SCH ×2 (17:51→23:25)
[2021-11-17] MEDS: KCL 10MEQ/100ML SWI (KRUN) 10 MEQ in IV 1 EA IV SCH ×4 (17:51→23:28)
[2021-11-17] MEDS: ALPRAZolam 0.5 MG TAB PO SCH ×2 (18:43→21:00)
[2021-11-17] MEDS: GABAPENTIN 400MG CAP PO SCH ×2 (18:43→21:00)
[2021-11-17] MEDS: METOCLOPRAMIDE INJ 10MG/2ML VIAL (J2765 PER 1) IV PRN (19:36)
[2021-11-17] MEDS ORDERED: amLODIPine 5 MG TAB PO ONE (21:00)
[2021-11-17] MEDS ORDERED: **hydrALAZINE** 50 MG TAB PO ONE (21:00)
[2021-11-17] MEDS ORDERED: LABETALOL 100MG/20ML VIAL As Ordered ONE (22:18)
[2021-11-17] MEDS ORDERED: LABETALOL 100MG/20ML VIAL IV STA (22:18)
[2021-11-17] MEDS: HEPARIN SOD (PORCINE) 5000UNITS/ML 1ML VIAL/SYRINGE SQ SCH (23:08)
[2021-11-17 23:11] VITALS: BP 134/88
[2021-11-17 23:16] VITALS: O2SAT 95
[2021-11-17] MEDS: PIPERACILLIN/TAZOBACTAM SOD 4.5 GM in D5W MINI-BAG PLUS 50 ML IV SCH (23:33)
[2021-11-18] MEDS: PIPERACILLIN/TAZOBACTAM SOD 4.5 GM in D5W MINI-BAG PLUS 50 ML IV SCH (03:38)
[2021-11-18 04:47] VITALS: BP 129/87
[2021-11-18] MEDS: HEPARIN SOD (PORCINE) 5000UNITS/ML 1ML VIAL/SYRINGE SQ SCH (05:06)
[2021-11-18 05:14] VITALS: BP 155/79
[2021-11-18] MEDS ORDERED: CALCIUM CARBONATE 500 MG CHEW U/D PO PRN (06:00)
[2021-11-18] MEDS: METOCLOPRAMIDE INJ 10MG/2ML VIAL (J2765 PER 1) IV PRN (06:03)
[2021-11-18] MEDS: NS 1,000 ML IV SCH (07:10)
[2021-11-18] MEDS: ALPRAZolam 0.5 MG TAB PO SCH (08:29)
[2021-11-18 08:30] VITALS: BP 155/79
[2021-11-18] MEDS: GABAPENTIN 400MG CAP PO SCH (08:30)
[2021-11-18] MEDS ORDERED: CHLORTHALIDONE 25 MG TAB PO SCH (09:00)
[2021-11-18] MEDS ORDERED: PANTOPRAZOLE 40MG VIAL IV SCH (09:00)
[2021-11-18] MEDS ORDERED: ENOXAPARIN 40MG/0.4ML SYRINGE (J1650 PER 10MG) SC SCH (09:00)
[2021-11-18] MEDS ORDERED: amLODIPine 5 MG TAB PO SCH (09:00)
[2021-11-18 09:55] LABS: BASO % 0.2 % (0.0-1.0); EOS % 0.1 % (0.0-3.0); HEMATOCRIT 38.7 % (36.0-47.0); LYMPH # 3.6 10^3/uL (1.5-5.0); LYMPH % 21.1 % (24.0-44.0); MEAN CORPUSCULAR HEMOGLOBIN 30.1 pg (27.0-33.0); MEAN CORPUSCULAR HGB CONC 33.3 g/dl (32.0-36.5); MEAN CORPUSCULAR VOLUME 90.2 fl (80.0-96.0); MONO % 5.9 % (2.0-8.0); NEUTROPHILS # 12.3 10^3/uL (1.5-8.5); NEUTROPHILS % 72.3 % (36.0-66.0); PLATELET COUNT, AUTOMATED 339 10^3/uL (150-450); RED BLOOD COUNT 4.29 10^6/uL (4.00-5.40)
[2021-11-18 10:05] LABS: HEMOGLOBIN 12.9 g/dl (12.0-15.5)
[2021-11-18 10:30] LABS: ALBUMIN 3.3 GM/DL (3.2-5.2); ALT/SGPT 14 U/L (12-78); BILIRUBIN,TOTAL 0.7 MG/DL (0.2-1.0); BLOOD UREA NITROGEN 17 MG/DL (7-18); CALCIUM LEVEL 9.6 MG/DL (8.5-10.1); CARBON DIOXIDE LEVEL 25 MEQ/L (21-32); CHLORIDE LEVEL 102 MEQ/L (98-107); CREATININE FOR GFR 1.09 MG/DL (0.55-1.30); GLOMERULAR FILTRATION RATE > 60.0 (>60); GLUCOSE, FASTING 144 MG/DL (70-100); POTASSIUM SERUM 3.2 MEQ/L (3.5-5.1); SODIUM LEVEL 137 MEQ/L (136-145); TOTAL PROTEIN 6.8 GM/DL (6.4-8.2)
[2021-11-18] MEDS ORDERED: POTASSIUM CHLORIDE 10MEQ SR TABLET PO ONE (11:00)
[2021-11-18] MEDS ORDERED: CHLO25TA PO (11:01)
[2021-11-18] MEDS ORDERED: CEFD300CAP PO (11:01)
[2021-11-18] MEDS ORDERED: SUCRALFATE SUSP 1GM/10ML UD PO SCH (12:00)
[2021-11-19] MEDS ORDERED: REGL10TA6 PO (09:41)
== END 2021-11-18 11:05 | disposition left against medical advice (07) | DRG 469 ==
LOC: M ED 08:17 → M ED INP 12:59 → M MSPAV 22:55
PROVIDERS: ADMIT Student in an Organized Health Care Education/Training Program; ATTEND Family Medicine
DX: N17.9 Acute kidney failure, unspecified (principal); I10 Essential (primary) hypertension; F12.188 Cannabis abuse with other cannabis-induced disorder; E78.5 Hyperlipidemia, unspecified; F32.A Depression, unspecified; B19.20 Unspecified viral hepatitis C without hepatic coma; F31.9 Bipolar disorder, unspecified; F41.9 Anxiety disorder, unspecified; M54.50 Low back pain, unspecified; G43.909 Migraine, unspecified, not intractable, without status migrainosus; F42.9 Obsessive-compulsive disorder, unspecified; F17.200 Nicotine dependence, unspecified, uncomplicated; N39.0 Urinary tract infection, site not specified; E87.6 Hypokalemia; Z79.899 Other long term (current) drug therapy; Z88.2 Allergy status to sulfonamides; I16.0 Hypertensive urgency

== ENCOUNTER 2021-11-19 05:30 | Emergency (ER) | payer OTHER ==
[~2021-11-19] VITALS: Ht 157.5 cm; Wt 56.8 kg
[~2021-11-19 05:30] MED LIST changes: +AMLO1TAB24 PO; +CEFD300CAP PO; +CHLO25TA PO
[2021-11-19 06:06] VITALS: BP 164/120
[2021-11-19] MEDS ORDERED: NS 1,000 ML IV ONE (07:55)
[2021-11-19] MEDS ORDERED: METOCLOPRAMIDE INJ 10MG/2ML VIAL (J2765 PER 1) IV ONE (07:55)
[2021-11-19 08:34] LABS: BASO # 0.1 10^3/uL (0.0-0.2); BASO % 0.4 % (0.0-1.0); EOS # 0.1 10^3/uL (0.0-0.5); EOS % 0.9 % (0.0-3.0); HEMATOCRIT 43.8 % (36.0-47.0); LYMPH # 3.8 10^3/uL (1.5-5.0); LYMPH % 25.9 % (24.0-44.0); MEAN CORPUSCULAR VOLUME 91.3 fl (80.0-96.0); MONO # 0.5 10^3/uL (0.0-0.8); MONO % 3.3 % (2.0-8.0); NEUTROPHILS # 10.1 10^3/uL (1.5-8.5); NEUTROPHILS % 69.2 % (36.0-66.0); PLATELET COUNT, AUTOMATED 363 10^3/uL (150-450); WHITE BLOOD COUNT 14.7 10^3/uL (4.0-10.0)
[2021-11-19 08:38] LABS: HEMOGLOBIN 14.9 g/dl (12.0-15.5)
[2021-11-19 09:10] LABS: ALBUMIN 4.5 GM/DL (3.2-5.2); BILIRUBIN,DIRECT 0.2 MG/DL (0.0-0.2); BILIRUBIN,TOTAL 0.7 MG/DL (0.2-1.0)
[2021-11-19] MEDS ORDERED: KETOROLAC 30 MG/ML 1ML VIAL IV ONE (09:15)
[2021-11-19] MEDS ORDERED: REGL10TA6 PO (09:41)
== END 2021-11-19 09:53 | disposition home or self-care (01) ==
LOC: M ED 05:30
DX: R11.2 Nausea with vomiting, unspecified (principal); R51.9 Headache, unspecified; D72.829 Elevated white blood cell count, unspecified; I10 Essential (primary) hypertension; K21.9 Gastro-esophageal reflux disease without esophagitis; F17.200 Nicotine dependence, unspecified, uncomplicated; Z88.2 Allergy status to sulfonamides; Z79.899 Other long term (current) drug therapy
CPT/HCPCS: 36415; 80047; 80076; 83690; 84702; 85025; 96361; 96374; 96375; 99284; J1885; J2765

== ENCOUNTER 2021-11-30 02:20 | Inpatient (IN) | payer OTHER ==
[~2021-11-30] VITALS: Ht 165.1 cm; Wt 52.3 kg
[2021-11-30] MEDS ORDERED: SERT25TA21 PO (02:49)
[2021-11-30 03:13] LABS: BASO % 0.2 % (0.0-1.0); EOS % 0.3 % (0.0-3.0); HEMATOCRIT 45.4 % (36.0-47.0); HEMOGLOBIN 15.6 g/dl (12.0-15.5); LYMPH # 4.1 10^3/uL (1.5-5.0); LYMPH % 29.2 % (24.0-44.0); MEAN CORPUSCULAR HEMOGLOBIN 30.5 pg (27.0-33.0); MEAN CORPUSCULAR HGB CONC 34.4 g/dl (32.0-36.5); MEAN CORPUSCULAR VOLUME 88.8 fl (80.0-96.0); MONO # 0.6 10^3/uL (0.0-0.8); MONO % 4.5 % (2.0-8.0); NEUTROPHILS # 9.1 10^3/uL (1.5-8.5); NEUTROPHILS % 65.4 % (36.0-66.0); PLATELET COUNT, AUTOMATED 477 10^3/uL (150-450); RED BLOOD COUNT 5.11 10^6/uL (4.00-5.40); WHITE BLOOD COUNT 13.9 10^3/uL (4.0-10.0)
[2021-11-30] MEDS ORDERED: NS 1,000 ML IV ONE (03:25)
[2021-11-30 03:46] LABS: ALBUMIN 4.8 GM/DL (3.2-5.2); BILIRUBIN,DIRECT 0.1 MG/DL (0.0-0.2); BILIRUBIN,TOTAL 0.5 MG/DL (0.2-1.0); CALCIUM LEVEL 10.9 MG/DL (8.5-10.1); CREATININE FOR GFR 1.81 MG/DL (0.55-1.30); GLOMERULAR FILTRATION RATE 33.9 (>60); POTASSIUM SERUM 2.8 MEQ/L (3.5-5.1); TOTAL PROTEIN 9.1 GM/DL (6.4-8.2)
[2021-11-30] MEDS ORDERED: KCL 10MEQ/100ML SWI (KRUN) 10 MEQ in IV 1 EA IV ONE (03:50)
[2021-11-30] MEDS ORDERED: HALOPERIDOL 5MG/ML VIAL (J1630 PER 1) IV ONE (04:00)
[2021-11-30] MEDS ORDERED: POTASSIUM CHLORIDE 10MEQ SR TABLET PO ONE ×4 (05:00→21:00)
[2021-11-30] MEDS ORDERED: PROMETHAZINE 25MG/ML 1ML VIAL IV ONE (09:10)
[2021-11-30] MEDS ORDERED: GI COCKTAIL 50ML BTL(HYOSCYAMINE/MAALOX/LIDOCAINE VISCOUS)(1:3:1) PO ONE (11:40)
[2021-11-30] MEDS ORDERED: cloNIDine 0.2 MG TAB PO ONE (12:55)
[2021-11-30] MEDS ORDERED: ALPRAZolam 0.5 MG TAB PO ONE (12:55)
[2021-11-30] MEDS ORDERED: amLODIPine 5 MG TAB PO ONE (13:20)
[2021-11-30] MEDS ORDERED: hydrALAZINE 20MG/ML 1ML VIAL (J0360 PER 20MG) IV ONE (14:50)
[2021-11-30] MEDS ORDERED: RAME8TAB2 PO (14:52)
[2021-11-30] MEDS ORDERED: PANT40TA29 PO (14:52)
[2021-11-30] MEDS ORDERED: OFLOSO OU (14:52)
[2021-11-30] MEDS ORDERED: ARIP1TAB4 PO (14:52)
[2021-11-30] MEDS ORDERED: VIIB20TA PO (14:52)
[2021-11-30] MEDS ORDERED: AMIT50TA PO (14:52)
[2021-11-30] MEDS ORDERED: QUET100T2 PO (14:52)
[2021-11-30] MEDS ORDERED: ONDANSETRON 4MG/2ML VIAL IV PRN (17:25)
[2021-11-30 17:50] LABS: RSV AMPLIFICATION NEGATIVE (NEGATIVE)
[2021-11-30 18:05] LABS: BLOOD UREA NITROGEN 29 MG/DL (7-18); CALCIUM LEVEL 9.2 MG/DL (8.5-10.1); CARBON DIOXIDE LEVEL 28 MEQ/L (21-32); CHLORIDE LEVEL 98 MEQ/L (98-107); CREATININE FOR GFR 1.02 MG/DL (0.55-1.30); GLOMERULAR FILTRATION RATE > 60.0 (>60); GLUCOSE, FASTING 89 MG/DL (70-100); POTASSIUM SERUM 2.9 MEQ/L (3.5-5.1); SODIUM LEVEL 134 MEQ/L (136-145)
[2021-11-30] MEDS ORDERED: PANTOPRAZOLE 40MG VIAL IV ONE (18:15)
[2021-11-30] MEDS ORDERED: HOME MED LIST COMPLETE! XX SCH (18:15)
[2021-11-30] MEDS ORDERED: CHLO25TA PO (18:15)
[2021-11-30] MEDS ORDERED: KCL 10MEQ/100ML SWI (KRUN) 10 MEQ in IV 1 EA IV SCH (19:00)
[2021-11-30 20:05] VITALS: BP 142/96
[2021-11-30 20:29] VITALS: BP 142/96
[2021-11-30] MEDS: cloNIDine 0.2 MG TAB PO SCH (20:29)
[2021-11-30] MEDS ORDERED: FIORICET TAB PO ONE (20:30)
[2021-11-30] MEDS: QUEtiapine FUMARATE 100 MG TAB PO SCH (20:32)
[2021-11-30] MEDS: GABAPENTIN 400MG CAP PO SCH (20:32)
[2021-11-30] MEDS: ALPRAZolam 0.5 MG TAB PO SCH (20:33)
[2021-11-30] MEDS ORDERED: RAMELTEON 8 MG TAB (ROZEREM) PO SCH (21:00)
[2021-11-30] MEDS: HEPARIN SOD (PORCINE) 5000UNITS/ML 1ML VIAL/SYRINGE SQ SCH (22:02)
[2021-12-01 02:00] VITALS: BP 140/101
[2021-12-01 05:00] VITALS: BP 122/83
[2021-12-01] MEDS: HEPARIN SOD (PORCINE) 5000UNITS/ML 1ML VIAL/SYRINGE SQ SCH (05:38)
[2021-12-01 06:49] LABS: BASO % 0.4 % (0.0-1.0); EOS # 0.1 10^3/uL (0.0-0.5); EOS % 0.7 % (0.0-3.0); HEMATOCRIT 34.7 % (36.0-47.0); LYMPH # 4.4 10^3/uL (1.5-5.0); LYMPH % 41.3 % (24.0-44.0); MEAN CORPUSCULAR HEMOGLOBIN 30.6 pg (27.0-33.0); MEAN CORPUSCULAR HGB CONC 32.9 g/dl (32.0-36.5); MEAN CORPUSCULAR VOLUME 93.3 fl (80.0-96.0); MONO # 0.5 10^3/uL (0.0-0.8); MONO % 4.8 % (2.0-8.0); NEUTROPHILS # 5.6 10^3/uL (1.5-8.5); NEUTROPHILS % 52.5 % (36.0-66.0); PLATELET COUNT, AUTOMATED 324 10^3/uL (150-450); RED BLOOD COUNT 3.72 10^6/uL (4.00-5.40); WHITE BLOOD COUNT 10.7 10^3/uL (4.0-10.0)
[2021-12-01 06:52] LABS: HEMOGLOBIN 11.4 g/dl (12.0-15.5)
[2021-12-01 07:15] LABS: ALBUMIN 3.3 GM/DL (3.2-5.2); ALT/SGPT 10 U/L (12-78); BILIRUBIN,TOTAL 0.3 MG/DL (0.2-1.0); BLOOD UREA NITROGEN 22 MG/DL (7-18); CALCIUM LEVEL 8.9 MG/DL (8.5-10.1); CARBON DIOXIDE LEVEL 25 MEQ/L (21-32); CHLORIDE LEVEL 103 MEQ/L (98-107); CREATININE FOR GFR 0.94 MG/DL (0.55-1.30); GLOMERULAR FILTRATION RATE > 60.0 (>60); GLUCOSE, FASTING 116 MG/DL (70-100); POTASSIUM SERUM 3.4 MEQ/L (3.5-5.1); SODIUM LEVEL 135 MEQ/L (136-145); TOTAL PROTEIN 6.3 GM/DL (6.4-8.2)
[2021-12-01] MEDS ORDERED: PANTOPRAZOLE 40MG VIAL IV SCH (09:00)
[2021-12-01] MEDS: cloNIDine 0.2 MG TAB PO SCH (09:00)
[2021-12-01] MEDS ORDERED: CAPSAICIN 0.025% CR 60 GM TOP SCH (09:00)
[2021-12-01] MEDS ORDERED: SERTRALINE HCL 25 MG TABLET PO SCH (09:00)
[2021-12-01] MEDS ORDERED: CHLORTHALIDONE 25 MG TAB PO SCH (09:00)
[2021-12-01] MEDS ORDERED: amLODIPine 5 MG TAB PO SCH (09:00)
[2021-12-01] MEDS: GABAPENTIN 400MG CAP PO SCH (09:44)
[2021-12-01] MEDS: ALPRAZolam 0.5 MG TAB PO SCH (09:44)
[2021-12-01] MEDS: QUEtiapine FUMARATE 100 MG TAB PO SCH (09:44)
[2021-12-01] MEDS ORDERED: CAPS25CR TOP (10:58)
[2021-12-01] MEDS ORDERED: POTASSIUM CHLORIDE 10% LIQ 20 MEQ/15 ML UDC PO ONE (12:00)
== END 2021-12-01 11:10 | disposition home or self-care (01) | DRG 776 ==
LOC: M ED 02:20 → M ED INP 16:26 → ENRESERV 19:44 → M MSPAV 20:03
PROVIDERS: ADMIT Internal Medicine; ATTEND Internal Medicine
DX: F12.188 Cannabis abuse with other cannabis-induced disorder (principal); F31.9 Bipolar disorder, unspecified; I10 Essential (primary) hypertension; G43.909 Migraine, unspecified, not intractable, without status migrainosus; E78.5 Hyperlipidemia, unspecified; F41.9 Anxiety disorder, unspecified; B19.20 Unspecified viral hepatitis C without hepatic coma; I16.0 Hypertensive urgency; Z91.14 Patient's other noncompliance with medication regimen; E87.6 Hypokalemia; N20.0 Calculus of kidney; K21.9 Gastro-esophageal reflux disease without esophagitis; Z79.899 Other long term (current) drug therapy; Z88.2 Allergy status to sulfonamides; F17.200 Nicotine dependence, unspecified, uncomplicated; D72.829 Elevated white blood cell count, unspecified

== ENCOUNTER 2022-01-19 19:46 | Inpatient (IN) | payer OTHER ==
[~2022-01-19] VITALS: Ht 157.5 cm; Wt 58.8 kg
[~2022-01-19 19:46] MED LIST changes: +AMIT50TA PO; +CAPS25CR TOP; +OFLOSO OU; +PANT40TA29 PO; +RAME8TAB2 PO; +SERT25TA21 PO
[2022-01-19] MEDS ORDERED: cloNIDine 0.2 MG TAB PO ONE (20:20)
[2022-01-19] MEDS ORDERED: amLODIPine 5 MG TAB PO ONE (20:20)
[2022-01-19] MEDS ORDERED: CHLORTHALIDONE 25 MG TAB PO ONE (20:20)
[2022-01-19 20:37] LABS: HEMATOCRIT 34.6 % (36.0-47.0); HEMOGLOBIN 11.8 g/dl (12.0-15.5); MEAN CORPUSCULAR HEMOGLOBIN 30.3 pg (27.0-33.0); MEAN CORPUSCULAR HGB CONC 34.1 g/dl (32.0-36.5); MEAN CORPUSCULAR VOLUME 88.9 fl (80.0-96.0); PLATELET COUNT, AUTOMATED 396 10^3/uL (150-450); RED BLOOD COUNT 3.89 10^6/uL (4.00-5.40); WHITE BLOOD COUNT 14.8 10^3/uL (4.0-10.0)
[2022-01-19 21:02] LABS: HCG, SERUM QUALITATIVE NEGATIVE (NEGATIVE)
[2022-01-19 21:08] LABS: AMPHETAMINES LEVEL URINE POSITIVE (NEGATIVE); BARBITURATES URINE NEGATIVE (NEGATIVE); BENZODIAZEPINES URINE POSITIVE (NEGATIVE); CANNABINOIDS URINE POSITIVE (NEGATIVE); COCAINE METABOLITE URINE POSITIVE (NEGATIVE); METHADONE URINE NEGATIVE (NEGATIVE); OPIATES URINE NEGATIVE (NEGATIVE); PHENCYCLIDINE URINE NEGATIVE (NEGATIVE)
[2022-01-19 21:11] LABS: CK-MB VALUE MASS 1.6 NG/ML (<3.6); MB/CK RELATIVE INDEX 0.95 (< OR =4)
[2022-01-19 21:23] LABS: ACETAMINOPHEN LEVEL < 2.0 UG/ML (10.0-30.0); ALT/SGPT 16 U/L (12-78); BILIRUBIN,DIRECT 0.2 MG/DL (0.0-0.2); BILIRUBIN,TOTAL 0.5 MG/DL (0.2-1.0); BLOOD UREA NITROGEN 14 MG/DL (7-18); CALCIUM LEVEL 10.1 MG/DL (8.5-10.1); CARBON DIOXIDE LEVEL 23 MEQ/L (21-32); CHLORIDE LEVEL 107 MEQ/L (98-107); CREATININE FOR GFR 0.86 MG/DL (0.55-1.30); ETHYL ALCOHOL (ETHANOL) 0.005 % (0.000-0.010); GLOMERULAR FILTRATION RATE > 60.0 (>60); GLUCOSE, FASTING 101 MG/DL (70-100); POTASSIUM SERUM 2.7 MEQ/L (3.5-5.1); SALICYLATE LEVEL 5.7 MG/DL (5.0-30.0); SODIUM LEVEL 142 MEQ/L (136-145); THYROID STIMULATING HORMONE 0.485 uIU/ML (0.358-3.740); TOTAL PROTEIN 7.9 GM/DL (6.4-8.2)
[2022-01-19] MEDS ORDERED: POTASSIUM CHLORIDE 10MEQ SR TABLET PO ONE (21:35)
[2022-01-19] MEDS ORDERED: KCL 10MEQ/100ML SWI (KRUN) 10 MEQ in IV 1 EA IV ONE (21:35)
[2022-01-19] MEDS ORDERED: MIDAZOLAM 5MG/ML 1ML VIAL (J2250 PER 1MG) As Ordered ONE (21:50)
[2022-01-19] MEDS ORDERED: MIDAZOLAM INJ 2MG/2ML VIAL (J2250 PER 1MG) IM ONE (21:50)
[2022-01-19] MEDS ORDERED: MIDAZOLAM INJ 2MG/2ML VIAL (J2250 PER 1MG) IV ONE ×2 (22:25→23:30)
[2022-01-19] MEDS ORDERED: DERMABOND TOPICAL SKIN ADHESIVE TOP ONE (22:35)
[2022-01-19] MEDS: MIDAZOLAM INJ 2MG/2ML VIAL (J2250 PER 1MG) IV STA (23:10)
[2022-01-19 23:21] LABS: RSV AMPLIFICATION NEGATIVE (NEGATIVE)
[2022-01-19] MEDS ORDERED: SERT50TA29 PO (23:22)
[2022-01-19] MEDS ORDERED: HOME MED LIST COMPLETE! XX SCH (23:25)
[2022-01-20] MEDS ORDERED: HALOPERIDOL 5MG/ML VIAL (J1630 PER 1) IV ONE (00:15)
[2022-01-20] MEDS ORDERED: OLANZapine INTRAMUSCULAR 10MG VIAL IM ONE ×2 (00:15→06:25)
[2022-01-20] MEDS ORDERED: NS 1,000 ML IV SCH (02:30)
[2022-01-20] MEDS ORDERED: hydrALAZINE 20MG/ML 1ML VIAL (J0360 PER 20MG) IV PRN (02:50)
[2022-01-20 03:16] VITALS: BP 151/105
[2022-01-20 05:28] VITALS: BP 184/120
[2022-01-20] MEDS ORDERED: HALOPERIDOL 5MG/ML VIAL (J1630 PER 1) IM STA (06:55)
[2022-01-20 08:00] VITALS: BP 133/87
[2022-01-20] MEDS ORDERED: HALOPERIDOL 5MG/ML VIAL (J1630 PER 1) IM PRN (09:10)
[2022-01-20] MEDS ORDERED: diazePAM 10MG/2ML SYRINGE (J3360 PER 5MG) IV ONE (09:15)
[2022-01-20 10:59] LABS: HEMATOCRIT 42.4 % (36.0-47.0); MEAN CORPUSCULAR HEMOGLOBIN 29.5 pg (27.0-33.0); MEAN CORPUSCULAR HGB CONC 32.5 g/dl (32.0-36.5); MEAN CORPUSCULAR VOLUME 90.6 fl (80.0-96.0); PLATELET COUNT, AUTOMATED 409 10^3/uL (150-450); RED BLOOD COUNT 4.68 10^6/uL (4.00-5.40)
[2022-01-20 11:06] LABS: HEMOGLOBIN 13.8 g/dl (12.0-15.5)
[2022-01-20 11:31] LABS: ALBUMIN 4.1 GM/DL (3.2-5.2); ALT/SGPT 22 U/L (12-78); BILIRUBIN,TOTAL 0.8 MG/DL (0.2-1.0); BLOOD UREA NITROGEN 13 MG/DL (7-18); CALCIUM LEVEL 9.7 MG/DL (8.5-10.1); CARBON DIOXIDE LEVEL 22 MEQ/L (21-32); CHLORIDE LEVEL 106 MEQ/L (98-107); CREATININE FOR GFR 0.66 MG/DL (0.55-1.30); GLOMERULAR FILTRATION RATE > 60.0 (>60); GLUCOSE, FASTING 78 MG/DL (70-100); POTASSIUM SERUM 2.9 MEQ/L (3.5-5.1); SODIUM LEVEL 141 MEQ/L (136-145); TOTAL PROTEIN 8.1 GM/DL (6.4-8.2)
[2022-01-20] MEDS ORDERED: KCL 40MEQ in NS 1000ML 1,000 ML IV SCH (11:45)
[2022-01-20 12:24] LABS: CK-MB VALUE MASS 5.3 NG/ML (<3.6); MB/CK RELATIVE INDEX 1.04 (< OR =4)
[2022-01-20] MEDS: CHLORTHALIDONE 25 MG TAB PO SCH (14:07)
[2022-01-20] MEDS: GABAPENTIN 400MG CAP PO SCH ×3 (14:07→20:10)
[2022-01-20] MEDS: amLODIPine 5 MG TAB PO SCH (14:09)
[2022-01-20] MEDS ORDERED: POTASSIUM CHLORIDE 10MEQ SR TABLET PO ONE ×2 (15:45→19:10)
[2022-01-20 16:00] VITALS: BP 140/98
[2022-01-20] MEDS: NS 1,000 ML IV SCH (16:39)
[2022-01-20] MEDS: QUEtiapine FUMARATE 100 MG TAB PO SCH ×2 (18:15→20:10)
[2022-01-20 18:54] LABS: BLOOD UREA NITROGEN 12 MG/DL (7-18); CALCIUM LEVEL 9.6 MG/DL (8.5-10.1); CARBON DIOXIDE LEVEL 21 MEQ/L (21-32); CHLORIDE LEVEL 104 MEQ/L (98-107); CREATININE FOR GFR 0.63 MG/DL (0.55-1.30); GLOMERULAR FILTRATION RATE > 60.0 (>60); GLUCOSE, FASTING 92 MG/DL (70-100); POTASSIUM SERUM 2.6 MEQ/L (3.5-5.1); SODIUM LEVEL 140 MEQ/L (136-145)
[2022-01-20 20:00] VITALS: BP 120/68
[2022-01-20] MEDS: RAMELTEON 8 MG TAB (ROZEREM) PO SCH (20:10)
[2022-01-20 22:47] LABS: BLOOD UREA NITROGEN 13 MG/DL (7-18); CALCIUM LEVEL 9.7 MG/DL (8.5-10.1); CARBON DIOXIDE LEVEL 25 MEQ/L (21-32); CHLORIDE LEVEL 104 MEQ/L (98-107); CREATININE FOR GFR 0.75 MG/DL (0.55-1.30); GLOMERULAR FILTRATION RATE > 60.0 (>60); GLUCOSE, FASTING 128 MG/DL (70-100); SODIUM LEVEL 138 MEQ/L (136-145)
[2022-01-21] VITALS (10 sets, daily range): BP systolic 128–200; BP diastolic 73–129
[2022-01-21] MEDS: NS 1,000 ML IV SCH ×2 (03:31→16:45)
[2022-01-21 07:50] LABS: HEMATOCRIT 38.6 % (36.0-47.0); HEMOGLOBIN 12.8 g/dl (12.0-15.5); MEAN CORPUSCULAR HEMOGLOBIN 29.6 pg (27.0-33.0); MEAN CORPUSCULAR HGB CONC 33.2 g/dl (32.0-36.5); MEAN CORPUSCULAR VOLUME 89.1 fl (80.0-96.0); PLATELET COUNT, AUTOMATED 402 10^3/uL (150-450); RED BLOOD COUNT 4.33 10^6/uL (4.00-5.40); WHITE BLOOD COUNT 16.5 10^3/uL (4.0-10.0)
[2022-01-21 08:35] LABS: BLOOD UREA NITROGEN 10 MG/DL (7-18); CARBON DIOXIDE LEVEL 24 MEQ/L (21-32); CHLORIDE LEVEL 105 MEQ/L (98-107); CREATININE FOR GFR 0.75 MG/DL (0.55-1.30); GLOMERULAR FILTRATION RATE > 60.0 (>60); GLUCOSE, FASTING 123 MG/DL (70-100); POTASSIUM SERUM 3.2 MEQ/L (3.5-5.1); SODIUM LEVEL 137 MEQ/L (136-145)
[2022-01-21 08:36] LABS: ALBUMIN 3.6 GM/DL (3.2-5.2); ALT/SGPT 14 U/L (12-78); BILIRUBIN,TOTAL 0.5 MG/DL (0.2-1.0); CALCIUM LEVEL 9.2 MG/DL (8.5-10.1); MAGNESIUM LEVEL 1.5 MG/DL (1.8-2.4); TOTAL PROTEIN 6.9 GM/DL (6.4-8.2)
[2022-01-21] MEDS ORDERED: ENOXAPARIN 40MG/0.4ML SYRINGE (J1650 PER 10MG) SC SCH (09:00)
[2022-01-21] MEDS ORDERED: POTASSIUM CHLORIDE 10MEQ SR TABLET PO ONE (09:30)
[2022-01-21] MEDS: GABAPENTIN 400MG CAP PO SCH ×4 (10:34→20:54)
[2022-01-21] MEDS: CHLORTHALIDONE 25 MG TAB PO SCH (10:35)
[2022-01-21] MEDS: amLODIPine 5 MG TAB PO SCH (10:35)
[2022-01-21] MEDS: QUEtiapine FUMARATE 100 MG TAB PO SCH ×3 (10:35→21:38)
[2022-01-21] MEDS ORDERED: MAGNESIUM OXIDE 400MG TAB (MAG-OX) PO ONE (11:00)
[2022-01-21] MEDS: **hydrALAZINE** 10 MG TAB PO PRN ×2 (11:23→19:06)
[2022-01-21] MEDS ORDERED: METOCLOPRAMIDE INJ 10MG/2ML VIAL (J2765 PER 1) IV PRN (11:50)
[2022-01-21] MEDS: ONDANSETRON 4MG 2ML VIAL IV PRN ×2 (13:37→21:38)
[2022-01-21] MEDS ORDERED: diazePAM 10MG/2ML SYRINGE (J3360 PER 5MG) IV ONE ×3 (16:30→21:50)
[2022-01-21] MEDS ORDERED: GI COCKTAIL 50ML BTL(HYOSCYAMINE/MAALOX/LIDOCAINE VISCOUS)(1:3:1) PO ONE (20:00)
[2022-01-21] MEDS: RAMELTEON 8 MG TAB (ROZEREM) PO SCH (20:53)
[2022-01-21] MEDS ORDERED: OXAZEPAM 15MG CAP PO SCH (22:00)
[2022-01-21 22:38] LABS: APPEARANCE, URINE MANUAL CLOUDY (CLEAR); COLOR, URINE MANUAL YELLOW (YELLOW)
[2022-01-21 22:40] LABS: BILIRUBIN, URINE MANUAL NEGATIVE (NEGATIVE); BLOOD URINE MANUAL POSITIVE (NEGATIVE); GLUCOSE, URINE (UA) MANUAL NEGATIVE (NEGATIVE); KETONE, URINE MANUAL 2+ mg/dL (NEGATIVE); LEUKOCYTE ESTERASE, URINE MAN POSITIVE (NEGATIVE); NITRITE, URINE MANUAL NEGATIVE (NEGATIVE); PROTEIN, URINE MANUAL NEGATIVE (NEGATIVE); SPECIFIC GRAVITY,URINE MANUAL 1.005 (1.002-1.035); UROBILINOGEN, URINE MANUAL NORMAL (NORMAL)
[2022-01-21 22:49] LABS: RBC, URINE 15-20 /hpf (0-3)
[2022-01-21 22:50] LABS: BACTERIA, URINE LARGE AMOUNT; HYALINE CAST, URINE NONE SEEN /lpf (0-1); SQUAMOUS EPITHELIAL CELL URINE MOD AMOUNT /hpf (SMALL AMT)
[2022-01-22] VITALS (9 sets, daily range): BP systolic 168–202; BP diastolic 84–118
[2022-01-22] MEDS ORDERED: PROMETHAZINE 25MG/ML 1ML VIAL IV ONE (00:05)
[2022-01-22] MEDS ORDERED: cloNIDine HCL 0.1 MG/24 HR PATCH TOP ONE (02:00)
[2022-01-22] MEDS ORDERED: diazePAM 10MG/2ML SYRINGE (J3360 PER 5MG) IV PRN (02:00)
[2022-01-22] MEDS ORDERED: PANTOPRAZOLE 40MG VIAL IV ONE (02:10)
[2022-01-22] MEDS ORDERED: METOCLOPRAMIDE INJ 10MG/2ML VIAL (J2765 PER 1) IV ONE (02:10)
[2022-01-22 03:33] LABS: HEMOGLOBIN 13.9 g/dl (12.0-15.5); MEAN CORPUSCULAR HEMOGLOBIN 29.5 pg (27.0-33.0); MEAN CORPUSCULAR HGB CONC 33.1 g/dl (32.0-36.5); MEAN CORPUSCULAR VOLUME 89.2 fl (80.0-96.0); PLATELET COUNT, AUTOMATED 453 10^3/uL (150-450); RED BLOOD COUNT 4.71 10^6/uL (4.00-5.40); WHITE BLOOD COUNT 13.7 10^3/uL (4.0-10.0)
[2022-01-22] MEDS: hydrALAZINE 20MG/ML 1ML VIAL (J0360 PER 20MG) IV PRN ×2 (04:29→16:38)
[2022-01-22] MEDS: NS 1,000 ML IV SCH ×2 (04:45→18:20)
[2022-01-22 06:23] LABS: ALBUMIN 4.1 GM/DL (3.2-5.2); ALT/SGPT 20 U/L (12-78); BILIRUBIN,TOTAL 0.5 MG/DL (0.2-1.0); BLOOD UREA NITROGEN 8 MG/DL (7-18); CALCIUM LEVEL 10.1 MG/DL (8.5-10.1); CARBON DIOXIDE LEVEL 24 MEQ/L (21-32); CHLORIDE LEVEL 103 MEQ/L (98-107); CREATININE FOR GFR 0.69 MG/DL (0.55-1.30); GLOMERULAR FILTRATION RATE > 60.0 (>60); GLUCOSE, FASTING 156 MG/DL (70-100); MAGNESIUM LEVEL 1.6 MG/DL (1.8-2.4); POTASSIUM SERUM 3.4 MEQ/L (3.5-5.1); SODIUM LEVEL 135 MEQ/L (136-145); TOTAL PROTEIN 7.7 GM/DL (6.4-8.2)
[2022-01-22] MEDS ORDERED: MAG SULF 1GM/100ML (MAG RUN) 1 GM in IV 1 EA IV ONE (08:00)
[2022-01-22] MEDS ORDERED: KCL 10MEQ/100ML SWI (KRUN) 10 MEQ in IV 1 EA IV ONE (09:00)
[2022-01-22] MEDS: PANTOPRAZOLE 40MG VIAL IV SCH ×2 (09:45→21:02)
[2022-01-22] MEDS ORDERED: ONDANSETRON 4MG 2ML VIAL IV PRN (09:50)
[2022-01-22] MEDS ORDERED: amLODIPine 5 MG TAB PO ONE (09:50)
[2022-01-22] MEDS ORDERED: OXAZEPAM 10MG CAP PO SCH (14:00)
[2022-01-22] MEDS: ALPRAZolam 0.5 MG TAB PO SCH ×2 (15:50→21:03)
[2022-01-22] MEDS ORDERED: amLODIPine 5 MG TAB PO SCH (17:50)
[2022-01-22] MEDS: CHLORTHALIDONE 25 MG TAB PO SCH (18:20)
[2022-01-23] VITALS: BP 172/113
[2022-01-23] MEDS ORDERED: ACETAMINOPHEN TAB 650MG DOSE (2X325MG) PO ONE (00:35)
[2022-01-23 04:00] VITALS: BP 134/76
[2022-01-23] MEDS: ALPRAZolam 0.5 MG TAB PO SCH (06:04)
[2022-01-23] MEDS: NS 1,000 ML IV SCH (06:54)
[2022-01-23 08:00] VITALS: BP 170/89
[2022-01-23 09:29] VITALS: BP 170/89
[2022-01-23] MEDS: CHLORTHALIDONE 25 MG TAB PO SCH (09:29)
[2022-01-23 11:12] VITALS: BP 115/81
[2022-01-23 12:00] VITALS: BP 126/85
== END 2022-01-23 13:11 | disposition home or self-care (01) | DRG 776 ==
LOC: M ED 19:46 → EDBD 19:46 → M ED INP 01-20 00:11 → ENRESERV 01-20 01:22 → CANRESERV 01-20 01:22 → M PCU 01-20 03:16
PROVIDERS: ADMIT Internal Medicine; ATTEND Internal Medicine
DX: F15.121 Other stimulant abuse with intoxication delirium (principal); I10 Essential (primary) hypertension; F60.3 Borderline personality disorder; Z88.2 Allergy status to sulfonamides; E87.6 Hypokalemia; Z79.899 Other long term (current) drug therapy

== ENCOUNTER 2022-03-13 01:19 | Emergency (ER) | payer OTHER ==
[~2022-03-13] VITALS: Ht 154.9 cm; Wt 53.6 kg
[~2022-03-13 01:19] MED LIST changes: +SERT50TA29 PO
[2022-03-13 02:30] LABS: HEMATOCRIT 34.2 % (36.0-47.0); HEMOGLOBIN 11.2 g/dl (12.0-15.5); MEAN CORPUSCULAR HEMOGLOBIN 28.4 pg (27.0-33.0); MEAN CORPUSCULAR HGB CONC 32.7 g/dl (32.0-36.5); MEAN CORPUSCULAR VOLUME 86.6 fl (80.0-96.0); PLATELET COUNT, AUTOMATED 381 10^3/uL (150-450); RED BLOOD COUNT 3.95 10^6/uL (4.00-5.40); WHITE BLOOD COUNT 14.8 10^3/uL (4.0-10.0)
[2022-03-13 03:01] LABS: AMPHETAMINES LEVEL URINE POSITIVE (NEGATIVE); BARBITURATES URINE NEGATIVE (NEGATIVE); BENZODIAZEPINES URINE NEGATIVE (NEGATIVE); CANNABINOIDS URINE POSITIVE (NEGATIVE); COCAINE METABOLITE URINE NEGATIVE (NEGATIVE); METHADONE URINE NEGATIVE (NEGATIVE); OPIATES URINE NEGATIVE (NEGATIVE); PHENCYCLIDINE URINE NEGATIVE (NEGATIVE)
[2022-03-13 03:06] LABS: RSV AMPLIFICATION NEGATIVE (NEGATIVE)
[2022-03-13 03:14] LABS: ACETAMINOPHEN LEVEL < 2.0 UG/ML (10.0-30.0); ALBUMIN 3.6 GM/DL (3.2-5.2); ALT/SGPT 29 U/L (12-78); BILIRUBIN,DIRECT 0.2 MG/DL (0.0-0.2); BILIRUBIN,TOTAL 0.7 MG/DL (0.2-1.0); BLOOD UREA NITROGEN 8 MG/DL (7-18); CARBON DIOXIDE LEVEL 26 MEQ/L (21-32); CHLORIDE LEVEL 100 MEQ/L (98-107); CREATININE FOR GFR 0.77 MG/DL (0.55-1.30); ETHYL ALCOHOL (ETHANOL) < 0.003 % (0.000-0.010); GLOMERULAR FILTRATION RATE > 60.0 (>60); GLUCOSE, FASTING 97 MG/DL (70-100); POTASSIUM SERUM 3.1 MEQ/L (3.5-5.1); SALICYLATE LEVEL < 1.7 MG/DL (5.0-30.0); SODIUM LEVEL 137 MEQ/L (136-145); THYROID STIMULATING HORMONE 0.577 uIU/ML (0.358-3.740); TOTAL PROTEIN 7.3 GM/DL (6.4-8.2)
[2022-03-13] MEDS ORDERED: PANT40TA29 PO (05:00)
[2022-03-13] MEDS ORDERED: HOME MED LIST COMPLETE! XX SCH (05:05)
[2022-03-13] MEDS ORDERED: OLANZapine ORAL DISINTEGRATING TAB 5MG PO ONE (05:55)
[2022-03-13] MEDS ORDERED: ACETAMINOPHEN TAB 650MG DOSE (2X325MG) PO ONE (06:00)
[2022-03-13] MEDS ORDERED: cloNIDine 0.2 MG TAB PO ONE (08:35)
[2022-03-13] MEDS ORDERED: QUEtiapine FUMARATE 100 MG TAB PO ONE ×2 (08:35→21:20)
[2022-03-13] MEDS ORDERED: ALPRAZolam 0.5 MG TAB PO ONE (08:35)
[2022-03-13] MEDS ORDERED: CHLORTHALIDONE 25 MG TAB PO ONE (08:35)
[2022-03-13] MEDS ORDERED: amLODIPine 5 MG TAB PO ONE (08:35)
[2022-03-13 09:00] VITALS: BP 184/112
[2022-03-13] MEDS ORDERED: RAMELTEON 8 MG TAB (ROZEREM) PO ONE (21:20)
[2022-03-13] MEDS: SERTRALINE HCL 50 MG TAB PO ONE ×2 (21:37→21:39)
[2022-03-14 10:39] LABS: HCG, SERUM QUALITATIVE NEGATIVE (NEGATIVE)
[2022-03-14 14:26] VITALS: BP 142/89
== END 2022-03-14 14:29 | disposition home or self-care (01) ==
LOC: M ED 01:19
DX: F19.959 Other psychoactive substance use, unspecified with psychoactive substance-induced psychotic disorder, unspecified (principal); R44.3 Hallucinations, unspecified; F32.A Depression, unspecified; F17.200 Nicotine dependence, unspecified, uncomplicated; F15.10 Other stimulant abuse, uncomplicated

== ENCOUNTER 2022-04-13 10:45 | Emergency (ER) | payer MEDICAID ==
[~2022-04-13] VITALS: Ht 160 cm; Wt 50.6 kg
[2022-04-13 10:46] VITALS: BP 155/60
== END 2022-04-13 14:16 | disposition left against medical advice (07) ==
LOC: M ED 10:45
DX: Z53.21 Procedure and treatment not carried out due to patient leaving prior to being seen by health care provider (principal)

== ENCOUNTER → 2022-04-13 | Outpatient (CLI) | payer MEDICAID | LOC: M OUTALCOH 08:17 | PROVIDERS: ATTEND Psychiatry & Neurology Psychiatry | DX: F10.10 Alcohol abuse, uncomplicated (principal) ==

== ENCOUNTER 2022-04-15 08:52 | Emergency (ER) | payer MEDICAID, OTHER ==
[~2022-04-15] VITALS: Ht 160 cm; Wt 54.2 kg
[2022-04-15 08:53] VITALS: BP 158/99
== END 2022-04-15 11:38 | disposition home or self-care (01) ==
LOC: M ED 08:52
DX: Z76.0 Encounter for issue of repeat prescription (principal); F41.9 Anxiety disorder, unspecified; F32.A Depression, unspecified; Z88.2 Allergy status to sulfonamides; Z79.899 Other long term (current) drug therapy; Z79.891 Long term (current) use of opiate analgesic

== ENCOUNTER 2022-05-02 08:00 | Outpatient (RCR) | payer MEDICAID ==
[2022-05-04] MEDS ORDERED: MED REC COMMENT (21:52)
[2022-05-10] MEDS ORDERED: AMLO1TAB24 PO (11:18)
[2022-05-10] MEDS ORDERED: QUET100T2 PO (11:18)
[2022-05-10] MEDS ORDERED: GABA800T4 PO (11:18)
== END 2022-05-09 ==
LOC: M OUTALCOH 08:00
PROVIDERS: ATTEND Psychiatry & Neurology Psychiatry
DX: F16.20 Hallucinogen dependence, uncomplicated (principal); Z72.0 Tobacco use

== ENCOUNTER 2022-05-04 14:56 | Inpatient (IN) | payer MEDICAID ==
[~2022-05-04] VITALS: Ht 160 cm; Wt 52.7 kg
[2022-05-04] MEDS ORDERED: LORazepam 2 MG/ML VIAL IM STA (15:06)
[2022-05-04] MEDS: LORazepam 2 MG/ML VIAL IV SCH ×5 (17:23→20:42)
[2022-05-04 18:16] LABS: HEMOGLOBIN 11.1 g/dl (12.0-15.5); MEAN CORPUSCULAR HEMOGLOBIN 27.8 pg (27.0-33.0); MEAN CORPUSCULAR HGB CONC 32.6 g/dl (32.0-36.5); MEAN CORPUSCULAR VOLUME 85.2 fl (80.0-96.0); PLATELET COUNT, AUTOMATED 363 10^3/uL (150-450); RED BLOOD COUNT 3.99 10^6/uL (4.00-5.40); WHITE BLOOD COUNT 13.1 10^3/uL (4.0-10.0)
[2022-05-04 18:39] LABS: ACETAMINOPHEN LEVEL < 2.0 UG/ML (10.0-20.0); ALBUMIN 4.2 G/DL (3.2-5.2); ALT/SGPT 17 U/L (7.0-40); BILIRUBIN,DIRECT 0.2 MG/DL (<0.4); BLOOD UREA NITROGEN 19 MG/DL (9-23); CALCIUM LEVEL 9.8 MG/DL (8.5-10.1); CARBON DIOXIDE LEVEL 24 MMOL/L (20-31); CHLORIDE LEVEL 100 MMOL/L (98-107); CREATININE FOR GFR 0.63 MG/DL (0.55-1.30); ETHYL ALCOHOL (ETHANOL) 0.003 % (0.000-0.010); GLOMERULAR FILTRATION RATE > 60.0 (>60); GLUCOSE, FASTING 77 MG/DL (60-100); POTASSIUM SERUM 4.5 MMOL/L (3.5-5.1); SALICYLATE LEVEL < 3.0 MG/DL (<30); SODIUM LEVEL 136 MMOL/L (136-145); THYROID STIMULATING HORMONE 0.507 uIU/ML (0.55-4.78); TOTAL PROTEIN 7.4 G/DL (5.7-8.2)
[2022-05-04 18:51] LABS: RSV AMPLIFICATION NEGATIVE (NEGATIVE)
[2022-05-04 21:08] LABS: AMPHETAMINES LEVEL URINE POSITIVE (NEGATIVE); BARBITURATES URINE NEGATIVE (NEGATIVE); BENZODIAZEPINES URINE NEGATIVE (NEGATIVE); CANNABINOIDS URINE POSITIVE (NEGATIVE); COCAINE METABOLITE URINE NEGATIVE (NEGATIVE); METHADONE URINE NEGATIVE (NEGATIVE); OPIATES URINE NEGATIVE (NEGATIVE); PHENCYCLIDINE URINE NEGATIVE (NEGATIVE)
[2022-05-04 21:47] LABS: CPK CREATINE PHOSPHOKINASE 333 U/L (34-145)
[2022-05-04] MEDS ORDERED: MED REC COMMENT (21:52)
[2022-05-04] MEDS ORDERED: HOME MED LIST COMPLETE! XX SCH (21:55)
[2022-05-05 00:35] VITALS: BP 175/90
[2022-05-05 02:00] VITALS: BP 158/80
[2022-05-05 04:00] VITALS: BP 162/85
[2022-05-05 06:00] VITALS: BP 156/76
[2022-05-05] MEDS ORDERED: amLODIPine 5 MG TAB PO SCH (09:00)
[2022-05-05] MEDS ORDERED: ENOXAPARIN 40MG/0.4ML SYRINGE (J1650 PER 10MG) SC SCH (09:00)
== END 2022-05-05 08:16 | disposition left against medical advice (07) | DRG 812 ==
LOC: M ED 14:56 → EDBD 14:56 → M ED INP 22:35 → M ICU 05-05 00:29
PROVIDERS: ADMIT Family Medicine; ATTEND General Practice
DX: T40.712A Poisoning by cannabis, intentional self-harm, initial encounter (principal); Z78.1 Physical restraint status; I10 Essential (primary) hypertension; E78.5 Hyperlipidemia, unspecified; G43.909 Migraine, unspecified, not intractable, without status migrainosus; B18.2 Chronic viral hepatitis C; M54.50 Low back pain, unspecified; G47.00 Insomnia, unspecified; F41.9 Anxiety disorder, unspecified; F32.9 Major depressive disorder, single episode, unspecified; F42.9 Obsessive-compulsive disorder, unspecified; Z88.2 Allergy status to sulfonamides; Z79.899 Other long term (current) drug therapy

== ENCOUNTER 2022-05-05 09:25 | Inpatient (IN) | payer MEDICAID ==
[~2022-05-05] VITALS: Ht 160 cm; Wt 56.8 kg
[~2022-05-05 09:25] MED LIST changes: +MED REC COMMENT
[2022-05-05 09:55] LABS: HEMATOCRIT 37.2 % (36.0-47.0); MEAN CORPUSCULAR HEMOGLOBIN 27.6 pg (27.0-33.0); MEAN CORPUSCULAR HGB CONC 32.3 g/dl (32.0-36.5); MEAN CORPUSCULAR VOLUME 85.5 fl (80.0-96.0); PLATELET COUNT, AUTOMATED 390 10^3/uL (150-450); RED BLOOD COUNT 4.35 10^6/uL (4.00-5.40); WHITE BLOOD COUNT 8.3 10^3/uL (4.0-10.0)
[2022-05-05 10:28] LABS: HCG, SERUM QUALITATIVE NEGATIVE (NEGATIVE)
[2022-05-05 11:00] LABS: AMPHETAMINES LEVEL URINE POSITIVE (NEGATIVE); BARBITURATES URINE NEGATIVE (NEGATIVE); BENZODIAZEPINES URINE NEGATIVE (NEGATIVE); CANNABINOIDS URINE POSITIVE (NEGATIVE); COCAINE METABOLITE URINE NEGATIVE (NEGATIVE); METHADONE URINE NEGATIVE (NEGATIVE); OPIATES URINE NEGATIVE (NEGATIVE); PHENCYCLIDINE URINE NEGATIVE (NEGATIVE)
[2022-05-05 11:01] LABS: ACETAMINOPHEN LEVEL < 2.0 UG/ML (10.0-20.0); ALBUMIN 4.1 G/DL (3.2-5.2); ALKALINE PHOSPHATASE 109 U/L (46-116); ALT/SGPT 16 U/L (7.0-40); AST/SGOT 32 U/L (<34); BILIRUBIN,DIRECT 0.3 MG/DL (<0.4); BILIRUBIN,TOTAL 0.9 MG/DL (0.3-1.2); BLOOD UREA NITROGEN 27 MG/DL (9-23); CALCIUM LEVEL 9.7 MG/DL (8.5-10.1); CARBON DIOXIDE LEVEL 28 MMOL/L (20-31); CHLORIDE LEVEL 98 MMOL/L (98-107); CREATININE FOR GFR 0.83 MG/DL (0.55-1.30); ETHYL ALCOHOL (ETHANOL) 0.003 % (0.000-0.010); GLOMERULAR FILTRATION RATE > 60.0 (>60); GLUCOSE, FASTING 107 MG/DL (60-100); POTASSIUM SERUM 4.1 MMOL/L (3.5-5.1); SALICYLATE LEVEL < 3.0 MG/DL (<30); SODIUM LEVEL 137 MMOL/L (136-145); THYROID STIMULATING HORMONE 0.468 uIU/ML (0.55-4.78); TOTAL PROTEIN 7.1 G/DL (5.7-8.2)
[2022-05-05 11:25] LABS: RSV AMPLIFICATION NEGATIVE (NEGATIVE)
[2022-05-05] MEDS ORDERED: HOME MED LIST COMPLETE! XX SCH (12:10)
[2022-05-05] MEDS ORDERED: OLANZapine ORAL DISINTEGRATING TAB 5MG PO ONE (12:15)
[2022-05-07] MEDS ORDERED: cloNIDine 0.2 MG TAB PO PRN (06:15)
[2022-05-07] MEDS ORDERED: ALPRAZolam 0.5 MG TAB PO PRN (06:15)
[2022-05-07] MEDS ORDERED: amLODIPine 5 MG TAB PO SCH (09:00)
[2022-05-07] MEDS ORDERED: QUEtiapine FUMARATE 100 MG TAB PO SCH (09:00)
[2022-05-07 17:12] LABS: RSV AMPLIFICATION NEGATIVE (NEGATIVE)
[2022-05-07] MEDS: QUEtiapine FUMARATE 100 MG TAB PO SCH ×2 (18:16→20:16)
[2022-05-07] MEDS: GABAPENTIN 400MG CAP PO SCH ×2 (18:17→20:16)
[2022-05-07 18:32] VITALS: BP 131/83
[2022-05-07] MEDS: ALPRAZolam 0.5 MG TAB PO PRN (21:46)
[2022-05-08 06:00] VITALS: BP 151/99
[2022-05-08] MEDS: QUEtiapine FUMARATE 100 MG TAB PO SCH ×3 (08:14→20:08)
[2022-05-08] MEDS: GABAPENTIN 400MG CAP PO SCH ×4 (08:15→20:09)
[2022-05-08] MEDS: amLODIPine 5 MG TAB PO SCH (08:17)
[2022-05-08] MEDS: ALPRAZolam 0.5 MG TAB PO PRN ×2 (11:33→20:08)
[2022-05-08] MEDS: cloNIDine 0.2 MG TAB PO PRN (14:20)
[2022-05-08 18:44] VITALS: BP 135/85
[2022-05-08] MEDS: NICOTINE 14 MG/24 HR TRANSDERMAL TD PRN (21:03)
[2022-05-09 06:08] VITALS: BP 145/85
[2022-05-09] MEDS: QUEtiapine FUMARATE 100 MG TAB PO SCH ×3 (08:29→20:35)
[2022-05-09] MEDS: GABAPENTIN 400MG CAP PO SCH ×4 (08:29→20:38)
[2022-05-09] MEDS: amLODIPine 5 MG TAB PO SCH (08:32)
[2022-05-09] MEDS: ALPRAZolam 0.5 MG TAB PO PRN (14:25)
[2022-05-09] MEDS: cloNIDine 0.2 MG TAB PO PRN (20:35)
[2022-05-09] MEDS ORDERED: MOM 30ML SUSPENSION UDC PO PRN (21:05)
[2022-05-09] MEDS ORDERED: MAALOX 30 ML SUSP *UDC PO PRN (21:05)
[2022-05-09] MEDS ORDERED: traZODone 50 MG TAB PO PRN (21:05)
[2022-05-09] MEDS: ACETAMINOPHEN TAB 650MG DOSE (2X325MG) PO PRN (21:10)
[2022-05-10] MEDS: ACETAMINOPHEN TAB 650MG DOSE (2X325MG) PO PRN (05:09)
[2022-05-10] MEDS: NICOTINE 14 MG/24 HR TRANSDERMAL TD PRN (05:51)
[2022-05-10 06:44] VITALS: BP 147/81
[2022-05-10] MEDS: GABAPENTIN 400MG CAP PO SCH ×2 (08:22→12:13)
[2022-05-10] MEDS: QUEtiapine FUMARATE 100 MG TAB PO SCH (08:22)
[2022-05-10 08:23] VITALS: BP 147/81
[2022-05-10] MEDS: amLODIPine 5 MG TAB PO SCH (08:23)
[2022-05-10] MEDS ORDERED: QUET100T2 PO (11:18)
[2022-05-10] MEDS ORDERED: GABA800T4 PO (11:18)
[2022-05-10] MEDS ORDERED: AMLO1TAB24 PO (11:18)
[2022-05-10] MEDS: ALPRAZolam 0.5 MG TAB PO PRN (12:15)
== END 2022-05-10 13:01 | disposition home or self-care (01) | DRG 754 ==
LOC: M ED 09:25 → M ED INP 05-07 15:09 → M PSY 05-07 17:56
PROVIDERS: ADMIT Psychiatry & Neurology Psychiatry; ATTEND Psychiatry & Neurology Psychiatry
DX: F32.A Depression, unspecified (principal); B19.21 Unspecified viral hepatitis C with hepatic coma; F12.90 Cannabis use, unspecified, uncomplicated; F15.90 Other stimulant use, unspecified, uncomplicated; Z88.2 Allergy status to sulfonamides; I10 Essential (primary) hypertension; E78.5 Hyperlipidemia, unspecified; M54.50 Low back pain, unspecified; G47.00 Insomnia, unspecified; F60.3 Borderline personality disorder; F42.9 Obsessive-compulsive disorder, unspecified; G43.909 Migraine, unspecified, not intractable, without status migrainosus; Z79.899 Other long term (current) drug therapy; F17.200 Nicotine dependence, unspecified, uncomplicated; Z63.0 Problems in relationship with spouse or partner

== ENCOUNTER 2022-05-24 08:54 | Emergency (ER) | payer MEDICAID ==
[~2022-05-24] VITALS: Ht 160 cm; Wt 45.5 kg
[2022-05-24 08:55] VITALS: BP 209/125
[2022-05-25] MEDS ORDERED: GABA800T4 PO (07:32)
[2022-05-25] MEDS ORDERED: OMEP40CA5 PO (07:32)
[2022-05-25] MEDS ORDERED: AMLO1TAB24 PO (07:32)
[2022-05-25] MEDS ORDERED: QUET100T2 PO (07:32)
[2022-05-25] MEDS ORDERED: ALPR1TAB3 PO (07:32)
[2022-05-25] MEDS ORDERED: ONDA4TAB6 SL (07:32)
[2022-05-25] MEDS ORDERED: CLON0.2T PO (07:32)
[2022-05-25] MEDS ORDERED: MED REC COMMENT (07:33)
== END 2022-05-24 10:49 | disposition left against medical advice (07) ==
LOC: M ED 08:54
DX: Z53.21 Procedure and treatment not carried out due to patient leaving prior to being seen by health care provider (principal)

== ENCOUNTER 2022-05-25 00:48 | Emergency (ER) | payer MEDICAID ==
[~2022-05-25] VITALS: Ht 160 cm; Wt 50.6 kg
[2022-05-25 02:20] LABS: HEMATOCRIT 35.7 % (36.0-47.0); HEMOGLOBIN 11.6 g/dl (12.0-15.5); MEAN CORPUSCULAR HGB CONC 32.5 g/dl (32.0-36.5); MEAN CORPUSCULAR VOLUME 86.2 fl (80.0-96.0); PLATELET COUNT, AUTOMATED 358 10^3/uL (150-450); RED BLOOD COUNT 4.14 10^6/uL (4.00-5.40); WHITE BLOOD COUNT 10.3 10^3/uL (4.0-10.0)
[2022-05-25 02:40] LABS: BARBITURATES URINE NEGATIVE (NEGATIVE); COCAINE METABOLITE URINE NEGATIVE (NEGATIVE); METHADONE URINE NEGATIVE (NEGATIVE); OPIATES URINE NEGATIVE (NEGATIVE); PHENCYCLIDINE URINE NEGATIVE (NEGATIVE)
[2022-05-25 02:42] LABS: ETHYL ALCOHOL (ETHANOL) 0.003 % (0.000-0.010)
[2022-05-25 02:43] LABS: ACETAMINOPHEN LEVEL < 2.0 UG/ML (10.0-20.0); ALKALINE PHOSPHATASE 103 U/L (46-116); ALT/SGPT 14 U/L (7.0-40); AST/SGOT 21 U/L (<34); BILIRUBIN,DIRECT 0.2 MG/DL (<0.4); BILIRUBIN,TOTAL 0.5 MG/DL (0.3-1.2); BLOOD UREA NITROGEN 20 MG/DL (9-23); CALCIUM LEVEL 9.6 MG/DL (8.5-10.1); CARBON DIOXIDE LEVEL 23 MMOL/L (20-31); CHLORIDE LEVEL 101 MMOL/L (98-107); CREATININE FOR GFR 0.71 MG/DL (0.55-1.30); GLOMERULAR FILTRATION RATE > 60.0 (>60); GLUCOSE, FASTING 84 MG/DL (60-100); POTASSIUM SERUM 3.1 MMOL/L (3.5-5.1); SALICYLATE LEVEL < 3.0 MG/DL (<30); SODIUM LEVEL 137 MMOL/L (136-145); TOTAL PROTEIN 7.2 G/DL (5.7-8.2)
[2022-05-25 02:44] LABS: AMPHETAMINES LEVEL URINE POSITIVE (NEGATIVE); BENZODIAZEPINES URINE POSITIVE (NEGATIVE); CANNABINOIDS URINE POSITIVE (NEGATIVE)
[2022-05-25 02:46] LABS: THYROID STIMULATING HORMONE 0.514 uIU/ML (0.55-4.78)
[2022-05-25] MEDS ORDERED: POTASSIUM CHLORIDE 10MEQ SR TABLET PO ONE (04:00)
[2022-05-25] MEDS ORDERED: GABA800T4 PO (07:32)
[2022-05-25] MEDS ORDERED: QUET100T2 PO (07:32)
[2022-05-25] MEDS ORDERED: AMLO1TAB24 PO (07:32)
[2022-05-25] MEDS ORDERED: ONDA4TAB6 SL (07:32)
[2022-05-25] MEDS ORDERED: OMEP40CA5 PO (07:32)
[2022-05-25] MEDS ORDERED: CLON0.2T PO (07:32)
[2022-05-25] MEDS ORDERED: ALPR1TAB3 PO (07:32)
[2022-05-25] MEDS ORDERED: MED REC COMMENT (07:33)
[2022-05-25] MEDS ORDERED: HOME MED LIST COMPLETE! XX SCH (07:35)
[2022-05-25 07:58] VITALS: BP 134/69
== END 2022-05-25 08:02 | disposition home or self-care (01) ==
LOC: M ED 00:48
DX: F19.10 Other psychoactive substance abuse, uncomplicated (principal); I10 Essential (primary) hypertension; F20.9 Schizophrenia, unspecified; F41.9 Anxiety disorder, unspecified; F17.200 Nicotine dependence, unspecified, uncomplicated; F12.10 Cannabis abuse, uncomplicated; F10.10 Alcohol abuse, uncomplicated; Z88.2 Allergy status to sulfonamides

== ENCOUNTER 2022-06-08 08:00 | Outpatient (RCR) | payer MEDICAID ==
[~2022-06-08 08:00] MED LIST changes: +ONDA4TAB6 SL
== END 2022-06-09 ==
LOC: M OUTALCOH 08:00
PROVIDERS: ATTEND Psychiatry & Neurology Psychiatry
DX: F16.20 Hallucinogen dependence, uncomplicated (principal); Z72.0 Tobacco use

== ENCOUNTER 2022-07-04 22:48 | Emergency (ER) | payer MEDICAID, OTHER ==
[~2022-07-04] VITALS: Ht 160 cm; Wt 58.9 kg
[2022-07-04] MEDS ORDERED: cloNIDine 0.1MG TABLET PO ONE (23:30)
[2022-07-04 23:58] LABS: BASO % 0.4 % (0.0-1.0); EOS # 0.2 10^3/uL (0.0-0.5); EOS % 2.1 % (0.0-3.0); HEMATOCRIT 39.4 % (36.0-47.0); HEMOGLOBIN 12.2 g/dl (12.0-15.5); LYMPH # 3.9 10^3/uL (1.5-5.0); LYMPH % 39.9 % (24.0-44.0); MEAN CORPUSCULAR HEMOGLOBIN 27.5 pg (27.0-33.0); MEAN CORPUSCULAR VOLUME 88.7 fl (80.0-96.0); MONO # 0.4 10^3/uL (0.0-0.8); MONO % 4.2 % (2.0-8.0); NEUTROPHILS # 5.2 10^3/uL (1.5-8.5); NEUTROPHILS % 53.2 % (36.0-66.0); PLATELET COUNT, AUTOMATED 400 10^3/uL (150-450); RED BLOOD COUNT 4.44 10^6/uL (4.00-5.40); WHITE BLOOD COUNT 9.8 10^3/uL (4.0-10.0)
[2022-07-05] MEDS ORDERED: hydrALAZINE 20MG/ML 1ML VIAL IV ONE (00:05)
[2022-07-05 00:10] LABS: MAGNESIUM LEVEL 2.1 MG/DL (1.8-2.4)
[2022-07-05 00:11] LABS: BLOOD UREA NITROGEN 24 MG/DL (9-23); CALCIUM LEVEL 9.5 MG/DL (8.5-10.1); CARBON DIOXIDE LEVEL 30 MMOL/L (20-31); CHLORIDE LEVEL 101 MMOL/L (98-107); CREATININE FOR GFR 0.89 MG/DL (0.55-1.30); GLOMERULAR FILTRATION RATE > 60.0 (>60); GLUCOSE, FASTING 88 MG/DL (60-100); SODIUM LEVEL 138 MMOL/L (136-145)
[2022-07-05] MEDS ORDERED: cloNIDine 0.1MG TABLET PO ONE (01:15)
[2022-07-05 01:25] VITALS: BP 174/105
[2022-07-05 02:15] VITALS: BP 140/88
[2022-07-05] MEDS ORDERED: AMLO10TA PO (02:18)
== END 2022-07-05 02:32 | disposition home or self-care (01) ==
LOC: M ED 22:48
DX: I16.0 Hypertensive urgency (principal); I10 Essential (primary) hypertension; K21.9 Gastro-esophageal reflux disease without esophagitis; F31.9 Bipolar disorder, unspecified; Z88.2 Allergy status to sulfonamides; Z79.83 Long term (current) use of bisphosphonates; Z79.891 Long term (current) use of opiate analgesic; Z79.899 Other long term (current) drug therapy
CPT/HCPCS: 80048; 83735; 85025; 96374; 99284; J0360

== ENCOUNTER → 2022-07-12 | Outpatient (REF) | payer OTHER ==
[~2022-07-12] MED LIST changes: +AMLO10TA PO
== END ==
LOC: M LAB REF 16:33
PROVIDERS: ATTEND Physician Assistant
DX: Z79.899 Other long term (current) drug therapy (principal)

== ENCOUNTER 2022-08-03 08:40 | Outpatient (RCR) | payer MEDICAID | END 2022-08-07 | LOC: M OUTALCOH 08:40 | PROVIDERS: ATTEND Psychiatry & Neurology Psychiatry | DX: F16.20 Hallucinogen dependence, uncomplicated (principal); Z72.0 Tobacco use ==

== ENCOUNTER 2022-08-10 11:01 | Emergency (ER) | payer MEDICAID ==
[~2022-08-10] VITALS: Ht 167.6 cm; Wt 65.9 kg
[2022-08-10] MEDS ORDERED: NS 1,000 ML IV SCH (11:10)
[2022-08-10] MEDS ORDERED: DEXTROSE 50% 50ML SYRINGE IV STA ×2 (11:45→14:32)
[2022-08-10] MEDS ORDERED: DEXTROSE 50% 50ML SYRINGE As Ordered ONE (11:46)
[2022-08-10 11:51] LABS: BASO % 0.2 % (0.0-1.0); EOS # 0.1 10^3/uL (0.0-0.5); EOS % 0.6 % (0.0-3.0); HEMATOCRIT 38.4 % (36.0-47.0); HEMOGLOBIN 12.2 g/dl (12.0-15.5); LYMPH # 3.7 10^3/uL (1.5-5.0); LYMPH % 29.5 % (24.0-44.0); MEAN CORPUSCULAR HEMOGLOBIN 27.5 pg (27.0-33.0); MEAN CORPUSCULAR HGB CONC 31.8 g/dl (32.0-36.5); MEAN CORPUSCULAR VOLUME 86.5 fl (80.0-96.0); MONO # 0.5 10^3/uL (0.0-0.8); MONO % 4.3 % (2.0-8.0); NEUTROPHILS # 8.1 10^3/uL (1.5-8.5); NEUTROPHILS % 65.2 % (36.0-66.0); PLATELET COUNT, AUTOMATED 289 10^3/uL (150-450); RED BLOOD COUNT 4.44 10^6/uL (4.00-5.40); WHITE BLOOD COUNT 12.4 10^3/uL (4.0-10.0)
[2022-08-10 11:52] LABS: VENOUS BASE EXCESS -1.4 (-2.0-2.0); VENOUS HCO3 24.5 MEQ/L (23.0-27.0); VENOUS O2 SATURATION 85.8 % (60.0-80.0); VENOUS PARTIAL PRESSURE CO2 45.5 mmHg (38.0-50.0); VENOUS PARTIAL PRESSURE O2 53.8 mmHg (30.0-50.0); VENOUS PH 7.349 UNITS (7.330-7.430); VENOUS STANDARD HCO3 23.1 MEQ/L; VENOUS TOTAL CO2 25.9 MEQ/L (24.0-28.0)
[2022-08-10 12:10] LABS: ETHYL ALCOHOL (ETHANOL) 0.005 % (0.000-0.010)
[2022-08-10 12:12] LABS: ACETAMINOPHEN LEVEL < 2.0 UG/ML (10.0-20.0); ALBUMIN 4.2 G/DL (3.2-5.2); ALKALINE PHOSPHATASE 115 U/L (46-116); ALT/SGPT 9 U/L (7.0-40); AST/SGOT 12 U/L (<34); BILIRUBIN,DIRECT 0.1 MG/DL (<0.4); BILIRUBIN,TOTAL 0.3 MG/DL (0.3-1.2); BLOOD UREA NITROGEN 20 MG/DL (9-23); CALCIUM LEVEL 9.2 MG/DL (8.5-10.1); CARBON DIOXIDE LEVEL 28 MMOL/L (20-31); CHLORIDE LEVEL 106 MMOL/L (98-107); CPK CREATINE PHOSPHOKINASE 82 U/L (34-145); CREATININE FOR GFR 0.75 MG/DL (0.55-1.30); GLOMERULAR FILTRATION RATE > 60.0 (>60); GLUCOSE, FASTING 87 MG/DL (60-100); POTASSIUM SERUM 3.6 MMOL/L (3.5-5.1); SALICYLATE LEVEL < 3.0 MG/DL (<30); SODIUM LEVEL 142 MMOL/L (136-145); TOTAL PROTEIN 7.3 G/DL (5.7-8.2)
[2022-08-10 12:15] LABS: THYROID STIMULATING HORMONE 0.242 uIU/ML (0.55-4.78)
[2022-08-10 12:19] LABS: HCG, SERUM QUALITATIVE NEGATIVE (NEGATIVE); OSMOLALITY SERUM 294 MOSM/KG (275-295)
[2022-08-10 18:00] VITALS: BP 123/87
== END 2022-08-10 18:52 | disposition home or self-care (01) ==
LOC: M ED 11:01 → EDBD 11:01 → M ED 18:52
DX: F19.10 Other psychoactive substance abuse, uncomplicated (principal); I45.10 Unspecified right bundle-branch block; F31.9 Bipolar disorder, unspecified; B18.2 Chronic viral hepatitis C; I10 Essential (primary) hypertension; E78.5 Hyperlipidemia, unspecified; Z88.2 Allergy status to sulfonamides; Z79.891 Long term (current) use of opiate analgesic; Z79.899 Other long term (current) drug therapy

== ENCOUNTER 2022-08-15 08:00 | Outpatient (RCR) | payer MEDICAID | END 2022-09-07 | LOC: M OUTALCOH 08:00 | PROVIDERS: ATTEND Psychiatry & Neurology Psychiatry | DX: F16.20 Hallucinogen dependence, uncomplicated (principal); Z72.0 Tobacco use ==

== ENCOUNTER → 2022-11-12 | Outpatient (REF) ==
[~2022-11-12] MED LIST changes: +LORA1TAB23 PO; -LORA1TAB4 PO
== END ==
LOC: M LAB 14:54
PROVIDERS: ATTEND Nurse Practitioner Adult Health
DX: Z02.89 Encounter for other administrative examinations (principal)

== ENCOUNTER → 2023-10-02 | Outpatient (CLI) | payer OTHER ==
[~2023-10-02] MED LIST changes: -GABA-283 PO; +GABA-284 PO; +PROP20TA73 PO; -PROP20TA82 PO; +RISP-105; +RISP-105 PO; -RISP-8; -RISP-8 PO
[2023-10-02 09:59] LABS: BASO % 0.3 % (0.0-1.0); EOS # 0.3 10^3/uL (0.0-0.5); EOS % 3.9 % (0.0-3.0); HEMATOCRIT 39.7 % (36.0-47.0); HEMOGLOBIN 12.9 g/dl (12.0-15.5); LYMPH # 3.1 10^3/uL (1.5-5.0); LYMPH % 47.3 % (24.0-44.0); MEAN CORPUSCULAR HEMOGLOBIN 29.3 pg (27.0-33.0); MEAN CORPUSCULAR HGB CONC 32.5 g/dl (32.0-36.5); MONO # 0.3 10^3/uL (0.0-0.8); MONO % 4.4 % (2.0-8.0); NEUTROPHILS # 2.9 10^3/uL (1.5-8.5); NEUTROPHILS % 43.2 % (36.0-66.0); PLATELET COUNT, AUTOMATED 247 10^3/uL (150-450); RED BLOOD COUNT 4.41 10^6/uL (4.00-5.40); WHITE BLOOD COUNT 6.6 10^3/uL (4.0-10.0)
[2023-10-02 10:30] LABS: ALBUMIN 3.3 G/DL (3.2-5.2); ALKALINE PHOSPHATASE 76 U/L (46-116); ALT/SGPT < 9 U/L (7.0-40); AST/SGOT 14 U/L (<34); BILIRUBIN,TOTAL 0.2 MG/DL (0.3-1.2); BLOOD UREA NITROGEN 10 MG/DL (9-23); CALCIUM LEVEL 8.7 MG/DL (8.5-10.1); CARBON DIOXIDE LEVEL 29 MMOL/L (20-31); CHLORIDE LEVEL 108 MMOL/L (98-107); CHOLESTEROL LEVEL 180 MG/DL (<200); CHOLESTEROL RISK RATIO 7.17 (<5); CREATININE FOR GFR 0.58 MG/DL (0.55-1.30); GLOMERULAR FILTRATION RATE > 60.0 (>60); GLUCOSE, FASTING 86 MG/DL (60-100); HDL CHOLESTEROL 25.1 MG/DL (>40); LDL CHOLESTEROL 124.7 MG/DL (<100); NON-HDL-C 154.9 MG/DL; POTASSIUM SERUM 4.2 MMOL/L (3.5-5.1); SODIUM LEVEL 143 MMOL/L (136-145); TOTAL PROTEIN 6.6 G/DL (5.7-8.2); TRIGLYCERIDES LEVEL 151 MG/DL (<150)
== END ==
LOC: M RAD 08:38
PROVIDERS: ATTEND Physician Assistant
DX: M54.42 Lumbago with sciatica, left side (principal); I10 Essential (primary) hypertension

== ENCOUNTER → 2024-03-30 | Outpatient (CLI) | payer MEDICAID ==
[~2024-03-30] MED LIST changes: +GABA-1490 PO; +GABA-1635 PO; -GABA600T4 PO; -GABA800T4 PO; +ONDA-282 PO; +ONDA-282 SL; -ONDA4TAB6 PO; -ONDA4TAB6 SL
== END ==
LOC: M OUTALCOH 08:07
PROVIDERS: ATTEND Psychiatry & Neurology Psychiatry
DX: F12.20 Cannabis dependence, uncomplicated (principal); F17.200 Nicotine dependence, unspecified, uncomplicated

== ENCOUNTER → 2024-08-25 | Outpatient (REF) | payer MEDICAID ==
[~2024-08-25] MED LIST changes: +CARI-555 PO; -CARI1TAB7 PO; -LIDO4CRE4 TOP; +LIDO5CRE7 TOP
== END ==
LOC: M LAB REF 17:44
PROVIDERS: ATTEND Physician Assistant
DX: F41.0 Panic disorder [episodic paroxysmal anxiety] (principal)

== ENCOUNTER 2024-10-09 17:18 | Inpatient (IN) | payer MEDICAID, OTHER ==
[~2024-10-09] VITALS: Ht 154.9 cm; Wt 69.5 kg
[~2024-10-09 17:18] MED LIST changes: +AMLO-751 PO; -AMLO10TA PO
[2024-10-09 18:27] LABS: HEMATOCRIT 39.6 % (36.0-47.0); HEMOGLOBIN 13.2 g/dl (12.0-15.5); MEAN CORPUSCULAR HEMOGLOBIN 28.3 pg (27.0-33.0); MEAN CORPUSCULAR HGB CONC 33.3 g/dl (32.0-36.5); MEAN CORPUSCULAR VOLUME 84.8 fl (80.0-96.0); PLATELET COUNT, AUTOMATED 379 10^3/uL (150-450); RED BLOOD COUNT 4.67 10^6/uL (4.00-5.40); WHITE BLOOD COUNT 27.8 10^3/uL (4.0-10.0)
[2024-10-09 18:50] LABS: BARBITURATES URINE NEGATIVE (NEGATIVE); COCAINE METABOLITE URINE NEGATIVE (NEGATIVE); METHADONE URINE NEGATIVE (NEGATIVE); OPIATES URINE NEGATIVE (NEGATIVE)
[2024-10-09 18:51] LABS: PHENCYCLIDINE URINE NEGATIVE (NEGATIVE)
[2024-10-09 18:53] LABS: ETHYL ALCOHOL (ETHANOL) < 0.003 % (0.000-0.010)
[2024-10-09 18:53] LABS: AMPHETAMINES LEVEL URINE POSITIVE (NEGATIVE); BENZODIAZEPINES URINE POSITIVE (NEGATIVE); CANNABINOIDS URINE POSITIVE (NEGATIVE)
[2024-10-09 18:54] LABS: HCG, SERUM QUALITATIVE NEGATIVE (NEGATIVE)
[2024-10-09 18:55] LABS: SALICYLATE LEVEL < 3.0 MG/DL (<30)
[2024-10-09 19:01] LABS: ALBUMIN 4.7 G/DL (3.2-5.2); ALKALINE PHOSPHATASE 96 U/L (35-104); ALT/SGPT 12 U/L (7.0-40); AST/SGOT 22 U/L (<34); BILIRUBIN,DIRECT 0.4 MG/DL (<0.4); BILIRUBIN,TOTAL 1.2 MG/DL (0.3-1.2); BLOOD UREA NITROGEN 21 MG/DL (9-23); CALCIUM LEVEL 9.9 MG/DL (8.5-10.1); CARBON DIOXIDE LEVEL 21 MMOL/L (20-31); CHLORIDE LEVEL 104 MMOL/L (98-107); CREATININE FOR GFR 0.75 MG/DL (0.55-1.30); GLOMERULAR FILTRATION RATE > 90.0 (>60); GLUCOSE, FASTING 117 MG/DL (60-100); POTASSIUM SERUM 2.9 MMOL/L (3.5-5.1); SODIUM LEVEL 137 MMOL/L (136-145); TOTAL PROTEIN 8.2 G/DL (5.7-8.2)
[2024-10-09] MEDS: POTASSIUM CHLORIDE 10MEQ SR TABLET PO ONE ×2 (19:34→20:37)
[2024-10-09 19:35] LABS: BASO # 0.1 10^3/uL (0.0-0.2); BASO % 0.3 % (0.0-1.0); EOS # 0.2 10^3/uL (0.0-0.5); EOS % 0.5 % (0.0-3.0); LYMPH # 4.1 10^3/uL (1.5-5.0); LYMPH % 14.8 % (24.0-44.0); MONO # 1.3 10^3/uL (0.0-0.8); MONO % 4.7 % (2.0-8.0); NEUTROPHILS # 22.1 10^3/uL (1.5-8.5); NEUTROPHILS % 79.3 % (36.0-66.0)
[2024-10-09 19:39] LABS: MAGNESIUM LEVEL 1.6 MG/DL (1.8-2.4)
[2024-10-09 19:46] LABS: CPK CREATINE PHOSPHOKINASE 326 U/L (34-145)
[2024-10-09 20:09] LABS: KETONE, URINE AUTO RFX TRACE mg/dL (NEGATIVE); LEUKOCYTE ESTERASE UR AUTO RFX 1+ (NEGATIVE); NITRITE, URINE AUTO RFX POSITIVE (NEGATIVE); RBC, URINE AUTO RFX 3 /HPF (0-3); SQUAM EPITHELIAL CELL UR AURFX 11 /HPF (0-6); WBC, URINE AUTO RFX 11 /HPF (0-3)
[2024-10-09] MEDS: MAGNESIUM OXIDE 400MG TAB (MAG-OX) PO ONE (20:37)
[2024-10-09] MEDS: LORazepam 2 MG TAB PO ONE ×2 (20:37→23:52)
[2024-10-09] MEDS: ACETAMINOPHEN 325 MG TAB PO ONE (20:37)
[2024-10-09] MEDS: CEFDINIR 300 MG CAP (OMNICEF) PO SCH (21:14)
[2024-10-09] MEDS: MAALOX 30 ML SUSP *UDC PO ONE (23:33)
[2024-10-10 00:30] LABS: BLOOD UREA NITROGEN 21 MG/DL (9-23); CARBON DIOXIDE LEVEL 23 MMOL/L (20-31); CHLORIDE LEVEL 108 MMOL/L (98-107); CREATININE FOR GFR 0.72 MG/DL (0.55-1.30); GLOMERULAR FILTRATION RATE > 90.0 (>60); GLUCOSE, FASTING 121 MG/DL (60-100); POTASSIUM SERUM 4.6 MMOL/L (3.5-5.1); SODIUM LEVEL 139 MMOL/L (136-145)
[2024-10-10 00:42] LABS: BASO # 0.1 10^3/uL (0.0-0.2); BASO % 0.3 % (0.0-1.0); HEMATOCRIT 40.2 % (36.0-47.0); HEMOGLOBIN 13.6 g/dl (12.0-15.5); LYMPH # 5.1 10^3/uL (1.5-5.0); LYMPH % 19.5 % (24.0-44.0); MEAN CORPUSCULAR HEMOGLOBIN 29.1 pg (27.0-33.0); MEAN CORPUSCULAR HGB CONC 33.8 g/dl (32.0-36.5); MEAN CORPUSCULAR VOLUME 85.9 fl (80.0-96.0); MONO # 1.2 10^3/uL (0.0-0.8); MONO % 4.4 % (2.0-8.0); NEUTROPHILS # 19.7 10^3/uL (1.5-8.5); NEUTROPHILS % 75.3 % (36.0-66.0); PLATELET COUNT, AUTOMATED 389 10^3/uL (150-450); RED BLOOD COUNT 4.68 10^6/uL (4.00-5.40); WHITE BLOOD COUNT 26.2 10^3/uL (4.0-10.0)
[2024-10-10] MEDS ORDERED: MAALOX 30 ML SUSP *UDC PO PRN (01:55)
[2024-10-10] MEDS ORDERED: traZODone 50 MG TAB PO PRN (01:55)
[2024-10-10] MEDS ORDERED: ACETAMINOPHEN 325 MG TAB PO PRN (01:55)
[2024-10-10 03:19] VITALS: BP 133/95; TEMP 96.8; O2SAT 97
[2024-10-10] MEDS: LORazepam 2 MG TAB PO STA (04:40)
[2024-10-10] MEDS: OLANZapine ORAL DISINTEGRATING TAB 5MG PO STA (06:16)
[2024-10-10 06:37] VITALS: BP 132/82; TEMP 96.9; O2SAT 99
[2024-10-10] MEDS: CEFDINIR 300 MG CAP (OMNICEF) PO SCH (09:00)
[2024-10-10] MEDS: MAGNESIUM OXIDE 400MG TAB (MAG-OX) PO SCH (09:01)
[2024-10-10] MEDS: diphenhydrAMINE 25MG CAP PO PRN (09:01)
[2024-10-10] MEDS: diphenhydrAMINE 50MG CAP PO ONE (10:11)
[2024-10-10] MEDS: OLANZapine 5 MG TAB PO ONE (10:11)
[2024-10-10] MEDS: LORazepam 2 MG TAB PO ONE (10:11)
[2024-10-10] MEDS ORDERED: AMLO1TAB25 PO (10:52)
[2024-10-10] MEDS ORDERED: HOME MED LIST COMPLETE! XX SCH (10:55)
[2024-10-10] MEDS ORDERED: diphenhydrAMINE 25MG CAP PO PRN (13:30)
[2024-10-10] MEDS ORDERED: OLANZapine INTRAMUSCULAR 10MG VIAL IM PRN (13:30)
[2024-10-10] MEDS: NICOTINE 14 MG/24 HR TRANSDERMAL TD SCH (13:49)
[2024-10-10 14:46] VITALS: BP 117/82; TEMP 97; O2SAT 98
[2024-10-10] MEDS: GABAPENTIN 300 MG CAP PO SCH (15:44)
[2024-10-10] MEDS: LORazepam 1 MG TAB PO PRN (16:09)
[2024-10-10] MEDS ORDERED: diphenhydrAMINE 50MG CAP PO PRN (16:20)
[2024-10-10] MEDS ORDERED: OLANZapine ORAL DISINTEGRATING TAB 5MG PO PRN (18:25)
[2024-10-10] MEDS: traZODone 50 MG TAB PO SCH (20:51)
[2024-10-10] MEDS: OLANZapine 5 MG TAB PO SCH (20:51)
[2024-10-11] MEDS ORDERED: UNRESOLVED CLARIFICATION ENTRY XX SCH (00:01)
[2024-10-11] MEDS: MOM 30ML SUSPENSION UDC PO PRN (12:51)
[2024-10-11] MEDS: IBUPROFEN 400MG TAB PO PRN (12:53)
[2024-10-11 13:30] VITALS: BP 150/90; O2SAT 100
[2024-10-11] MEDS: NICOTINE 21MG/24HR 1 EA TRANSDERMAL TD SCH (14:26)
[2024-10-11 16:10] VITALS: BP 150/98; TEMP 97.4; O2SAT 98
[2024-10-11] MEDS: diphenhydrAMINE 50MG CAP PO ONE (16:26)
[2024-10-12 06:45] VITALS: BP 156/95; TEMP 97.6; O2SAT 98
[2024-10-12 08:22] VITALS: BP 121/80
[2024-10-12 08:27] VITALS: BP 121/80
[2024-10-12] MEDS ORDERED: OLAN1TAB16 PO (09:05)
[2024-10-12] MEDS ORDERED: GABA-1172 PO (09:05)
[2024-10-12] MEDS ORDERED: TRAZ-252 PO (09:05)
== END 2024-10-12 13:08 | disposition home or self-care (01) | DRG 753 ==
LOC: EDBD 17:18 → M ED 17:18 → M ED INP 10-10 01:54 → M PSY 10-10 03:09
PROVIDERS: ADMIT Emergency Medicine; ATTEND Psychiatry & Neurology Neurology
DX: F31.5 Bipolar disorder, current episode depressed, severe, with psychotic features (principal); F41.1 Generalized anxiety disorder; F12.20 Cannabis dependence, uncomplicated; F15.20 Other stimulant dependence, uncomplicated; Z88.2 Allergy status to sulfonamides; I10 Essential (primary) hypertension; E78.5 Hyperlipidemia, unspecified; K21.9 Gastro-esophageal reflux disease without esophagitis; G40.909 Epilepsy, unspecified, not intractable, without status epilepticus; K59.00 Constipation, unspecified; G43.909 Migraine, unspecified, not intractable, without status migrainosus; Z79.899 Other long term (current) drug therapy; N39.0 Urinary tract infection, site not specified; B96.20 Unspecified Escherichia coli [E. coli] as the cause of diseases classified elsewhere

== ENCOUNTER 2025-02-11 17:31 | Emergency (ER) | payer MEDICAID, OTHER ==
[~2025-02-11 17:31] MED LIST changes: +AMLO1TAB25 PO; +GABA-1172 PO; +OLAN1TAB16 PO; +TRAZ-252 PO
== END 2025-02-11 18:12 | disposition left against medical advice (07) ==
LOC: M ED 17:31 → EDBD 17:31 → M ED 18:12
DX: Z53.21 Procedure and treatment not carried out due to patient leaving prior to being seen by health care provider (principal)

== ENCOUNTER 2025-02-28 10:19 | Emergency (ER) | payer OTHER ==
[~2025-02-28] VITALS: Ht 154.9 cm; Wt 61.3 kg
[2025-02-28] MEDS: KETOROLAC 60 MG/2 ML VIAL IM ONE (12:23)
[2025-02-28 12:28] VITALS: BP 131/73; TEMP 96.7; O2SAT 100
== END 2025-02-28 12:37 | disposition home or self-care (01) ==
LOC: M ED 11:11
DX: S99.911A Unspecified injury of right ankle, initial encounter (principal); S99.921A Unspecified injury of right foot, initial encounter; X50.0XXA Overexertion from strenuous movement or load, initial encounter; R51.9 Headache, unspecified; K21.9 Gastro-esophageal reflux disease without esophagitis; F19.10 Other psychoactive substance abuse, uncomplicated; Z88.2 Allergy status to sulfonamides; Z79.899 Other long term (current) drug therapy; Y92.009 Unspecified place in unspecified non-institutional (private) residence as the place of occurrence of the external cause; Y93.89 Activity, other specified; Y99.9 Unspecified external cause status
CPT/HCPCS: 73610; 73630; 96372; 99284; J1885